=== PATIENT | female | born 1945 | race Caucasian/White ===

== ENCOUNTER 2017-08-11 08:16 | Outpatient (CLI) | payer MEDICARE, BC ==
[2017-08-11] MEDS ORDERED: Iopamidol 370 76% 100 ML VIAL ONE (09:45)
--- NOTE | 2017-08-11 09:49 | CT ---
CT HEAD WITH AND WITHOUT IV CONTRAST: Date: 08-11-17 History: Headache. Dizziness. Symptoms have been present for months. Comparison: 11-19-10 FINDINGS: There is no evidence of hemorrhage, acute infarction, mass effect or midline shift. Findings are unch anged when compared to the prior exam. After the administration of intravenous contrast, no abnormal areas of enhancement are appreciated. Ventricular system is normal in size, shape, and position. Visu alized paranasal sinuses and mastoid air cells are clear. Calvarial structures are intact. IMPRESSION: No acute intracranial abnormality is demonstrated. POS: [facility]
== END 2017-08-11 08:17 | disposition home or self-care (01) ==
LOC: CT 08:16
PROVIDERS: ATTEND Internal Medicine Cardiovascular Disease
DX: R51 Headache (principal)
CPT/HCPCS: 70470; 82565

== ENCOUNTER 2017-12-31 11:18 | Outpatient (CLI) | payer MEDICARE, BC | END 2017-12-31 11:19 | disposition home or self-care (01) | LOC: BICMAMMO 11:18 | PROVIDERS: ATTEND Obstetrics & Gynecology | DX: Z12.31 Encounter for screening mammogram for malignant neoplasm of breast (principal); Z80.3 Family history of malignant neoplasm of breast | CPT/HCPCS: 77063; 77067 ==

== ENCOUNTER 2018-04-16 07:58 | Day surgery (SDC) | payer MEDICARE, BC ==
[2018-04-08 11:25] VITALS: BMI 27.8
[2018-04-16] MEDS ORDERED: Fentanyl 100 MCG/2 ML VIAL ONE (11:20)
[2018-04-16] MEDS ORDERED: Lidocaine 1% (PF) 30 ML VIAL ONE (11:20)
[2018-04-16] MEDS ORDERED: Midazolam HCl 2 mg/2 ml Vial ONE (11:20)
[2018-04-16] MEDS ORDERED: Iopamidol 370 76% 100 ML VIAL ONE (13:47)
== END 2018-04-16 15:16 ==
LOC: CCL 07:58
PROVIDERS: ATTEND Internal Medicine Cardiovascular Disease
PROC: 4A023N7 Measurement of Cardiac Sampling and Pressure, Left Heart, Percutaneous Approach (ICD-10-PCS; principal; 2018-04-16)
PROC: B2111ZZ Fluoroscopy of Multiple Coronary Arteries using Low Osmolar Contrast (ICD-10-PCS; 2018-04-16)
DX: I25.10 Atherosclerotic heart disease of native coronary artery without angina pectoris (principal); E78.5 Hyperlipidemia, unspecified; E03.9 Hypothyroidism, unspecified; E78.00 Pure hypercholesterolemia, unspecified; K21.9 Gastro-esophageal reflux disease without esophagitis; I47.1 Supraventricular tachycardia; Z87.891 Personal history of nicotine dependence; Z79.899 Other long term (current) drug therapy; Z88.5 Allergy status to narcotic agent; Z88.8 Allergy status to other drugs, medicaments and biological substances
CPT/HCPCS: 93458; C1769; 99152; 99153; J1644; J2001; J2250; J3010

== ENCOUNTER 2018-06-23 07:28 | Outpatient (CLI) | payer MEDICARE, BC ==
--- NOTE | 2018-06-23 12:37 | RAD ---
CHEST TWO VIEWS: History: Dyspnea. Comparison: 04-17-16 FINDINGS: There is some calcified granuloma in the right lung base. Lungs are clear otherwise. No pneumothorax. No effusion. No acute osseous abnormality. Incomplete evaluation of ACDF hardware. IMPRESSION: No acute intrathoracic abnormality. POS: [facility]
== END 2018-06-23 07:29 | disposition home or self-care (01) ==
LOC: RAD 07:28
PROVIDERS: ATTEND Internal Medicine Critical Care Medicine
DX: R06.00 Dyspnea, unspecified (principal)
CPT/HCPCS: 71046

== ENCOUNTER 2019-01-13 08:33 | Outpatient (CLI) | payer MEDICARE, BC ==
--- NOTE | 2019-01-13 09:05 | MMO ---
Bilateral MAMMO Bilat Screen [facility]. CLINICAL HISTORY: Patient is 73 years old and is seen for screening. The patient has the following family history of breast cancer: maternal aunt and paternal aunt. The patient has no personal history of cancer. VIEWS: The views performed were: bilateral craniocaudal with tomosynthesis; bilateral mediolateral oblique with tomosynthesis; and bilateral exaggerated craniocaudal. FILMS COMPARED: The present examination has been compared to prior imaging studies performed at [facility] on 12/18/2014, 12/20/2015, 12/30/2016 and 12/31/2017. MAMMOGRAM FINDINGS: The breasts are heterogeneously dense, which could obscure a lesion on mammography. There are stable benign appearing calcifications seen in both breasts. There are no suspicious masses, suspicious calcifications, or new areas of architectural distortion. IMPRESSION: THERE IS NO MAMMOGRAPHIC EVIDENCE OF MALIGNANCY. A ROUTINE FOLLOW-UP MAMMOGRAM IN 1 YEAR IS RECOMMENDED. THE RESULTS OF THIS EXAM WERE SENT TO THE PATIENT. ACR BI-RADS Category 2 - Benign finding MAMMOGRAPHY NOTE: 1. A negative mammogram report should not delay a biopsy if a dominant of clinically suspicious mass is present. 2. Approximately 10% to 15% of breast cancers are not detected by mammography. 3. Adenosis and dense breasts may obscure an underlying neoplasm.
--- NOTE | 2019-01-13 09:23 | BD ---
DEXA BONE SCAN: HISTORY: Age-related osteoporosis DEXA Bone scan is performed using Hologic bone mineral density unit. FINDINGS: Lumbar Spine: BMD (g/cm2) L1 0.960 T-Score: -0.3 Z-Score: 1.8 L2 1.080 T-Score: 0.5 Z-Score: 2.8 L3 1.090 T-Score: 0.0 Z-Score: 2.5 L4 1.010 T-Score: -0.5 Z-Score: 2.1 L1-L4 1.030 T-Score: -0.1 Z-Score: 2.2 Left Hip: Femoral Neck: 0.630 T-Score: -2.0 Z-Score: 0.1 Total Femur: 0.830 T-Score: -0.9 Z-Score: 0.8 Findings compatible with osteopenia. The patient has a major osteoporotic fracture risk of 22% and hip fracture risk of 12%. IMPRESSION: Mild increased risk of osteoporotic fractures. Transcribed Date/Time: 01/13/2019 9:41 AM
== END 2019-01-13 08:34 | disposition home or self-care (01) ==
LOC: BICMAMMO 08:33
PROVIDERS: ATTEND Specialist
DX: Z12.31 Encounter for screening mammogram for malignant neoplasm of breast (principal); M81.0 Age-related osteoporosis without current pathological fracture; Z80.3 Family history of malignant neoplasm of breast
CPT/HCPCS: 77063; 77067; 77080

== ENCOUNTER 2019-01-25 09:54 | Outpatient (CLI) | payer MEDICARE, BC ==
--- NOTE | 2019-01-25 10:11 | RAD ---
XR Chest Pa Lat STANDARD HISTORY: Cough COMPARISON: 08/16/2018 study FINDINGS: Heart size within normal limits. There are atherosclerotic changes of the aorta. Mild chron ic lung changes are seen. There is evidence of old granulomatous disease. Postoperative changes of the cervical spine are present. IMPRESSION: No active intrathoracic disease. Stable chest.
== END 2019-01-25 09:55 | disposition home or self-care (01) ==
LOC: BICRAD 09:54
PROVIDERS: ATTEND Specialist
DX: R05 Cough (principal)
CPT/HCPCS: 71046

== ENCOUNTER 2019-03-03 09:29 | Outpatient (CLI) | payer MEDICARE, BC ==
--- NOTE | 2019-03-03 11:13 | RAD ---
RADIOGRAPH CHEST 1 VIEW RADIOGRAPH ABDOMEN 2 VIEWS: DATE: 03/03/19 HISTORY: 73-year-old female with right lower quadrant abdominal pain. Status post polypectomy. STAT telephone call, as requested, to Dr. Gina Cuba at time of dictation. FINDINGS: There are no air space densities or pulmonary edema. The lateral costophrenic angles are sharp. There is no cardiomegaly. There is no evidence of pneumothorax or pneumoperitoneum. There is no evidence of dilated small bowel loops, differential air/fluid levels, or organomegaly. Th ere are cholecystectomy clips in the right upper quadrant. IMPRESSION: 1. No acute cardiopulmonary findings. 2. No evidence of bowel obstruction. 3. No evidence of pneumoperitoneum. 4. Status post cholecystectomy. CODE CR. jn [] POS: [facility]
== END 2019-03-03 09:30 | disposition home or self-care (01) ==
LOC: BICRAD 09:29
PROVIDERS: ATTEND Family Medicine
DX: R10.31 Right lower quadrant pain (principal); Z90.49 Acquired absence of other specified parts of digestive tract
CPT/HCPCS: 74022

== ENCOUNTER 2019-06-16 20:58 | Observation (INO) | payer MEDICARE, BC ==
[2019-06-16 21:45] LABS: #Basophils 0.1 thou/uL (0.0-0.2); #Eosinphils 0.2 thou/uL (0.0-0.7); #Lymphocytes 2.7 thou/uL (1.20-3.40); #Monocytes 0.6 thou/uL (0.11-0.59); %Eosinophils 2.7 % (0.0-10.0); %Lymphocytes 35.6 % (21.0-51.0); %Monocytes 7.2 % (0.0-10.0); %Neutrophils 53.4 % (42.0-75.0); Hemoglobin 14.4 g/dL (12.0-16.0); Mean Corpuscular HGB CONC 33.6 g/dL (32.0-36.0); Mean Corpuscular Hemoglobin 29.8 pg (27.0-31.0); Mean Corpuscular Volume 88.8 fL (78.0-98.0); Mean Platelet Volume 8.3 fL (7.4-10.4); Platelet Count 219 thou/uL (130-400); RBC Distribution Width 11.2 % (11.5-14.5); Red Blood Cell (RBC) Count 4.81 mill/uL (4.20-5.40); White Blood Cell (WBC) Count 7.6 thou/uL (4.8-10.8)
[2019-06-16 22:12] LABS: ALT (SGPT) 16 U/L (8-55); AST (SGOT) 16 U/L (5-34); Albumin 4.4 g/dL (3.4-4.8); Alkaline Phosphatase 84 U/L (40-110); Anion Gap 12 mmol/L (10-20); BUN (Urea Nitrogen) 14 mg/dL (9.8-20.1); Bilirubin, Total 0.3 mg/dL (0.2-1.2); Calc. Creatinine Clearance 0 mL/min (70-130); Calcium 9.8 mg/dL (7.8-10.44); Carbon Dioxide 29 mmol/L (23-31); Chloride 105 mmol/L (98-107); Estimated GFR-MDRD 63; Globulin 2.9 g/dL (2.4-3.5); Glucose 104 mg/dL (83-110); Potassium 3.7 mmol/L (3.5-5.1); Protein, Total 7.3 g/dL (6.0-8.3); Sodium 142 mmol/L (136-145)
[2019-06-16] MEDS ORDERED: Nitroglycerin 2% Ointment 1 INCH/1 GM Packet ONE (22:22)
[2019-06-16] MEDS ORDERED: Aspirin Chewable 81 MG TAB ONE (22:22)
--- NOTE | 2019-06-16 22:35 | CT ---
CT head noncontrast HISTORY: Hypertension. Dizziness. COMPARISON: 11/19/2010. FINDINGS: There is no evidence of acute intracranial hemorrhage or infarct. The ventricles appear nor mal in size, shape and position. There is no mass effect or shift of midline structures. Visualized paranasal sinuses remain well-aerated. IMPRESSION: No acute intracranial abnormalities are demonstrated.
--- NOTE | 2019-06-16 23:43 | RAD ---
Chest one view HISTORY: Chest pain. COMPARISON: 03/03/2019. FINDINGS: Cardiac silhouette is magnified by projection. Pulmonary vasculature is unremarkable. Media stinum is midline with aortic calcification. Calcified granulomata are consistent with healed granulomatous disease. No lobar consolidation or evidence of pneumothorax. patient monitor leads over lie the chest. IMPRESSION: Atherosclerosis. No active cardiopulmonary abnormalities are otherwise demonstrated.
[2019-06-17] MEDS ORDERED: Mag-Al 1200 mg/1200 mg/30 ML UDCUP ONE (00:25)
[2019-06-17] MEDS ORDERED: Lidocaine Viscous Sol 2% 15 ml UD Cup ONE (00:25)
[2019-06-17 01:28] LABS: Troponin I Less than 0.010 ng/mL (< 0.028)
[2019-06-17] MEDS ORDERED: Acetaminophen 325 MG TAB PO PRN (01:40)
[2019-06-17] MEDS ORDERED: Ondansetron PF 4 MG/2 ML Vial IVP PRN (01:40)
[2019-06-17] MEDS ORDERED: HYDROcodone/Acetaminophen 5/325 mg Tablet PO PRN ×2 (01:40)
[2019-06-17] MEDS ORDERED: Ondansetron ODT 4 MG TAB SL PRN (01:40)
[2019-06-17] MEDS ORDERED: Nitroglycerin 0.4 MG TAB (25 Tab Bottle) SL PRN (01:41)
[2019-06-17 05:07] LABS: Troponin I Less than 0.010 ng/mL (< 0.028)
[2019-06-17 08:11] VITALS: TEMP 98.1
[2019-06-17] MEDS ORDERED: Zolpidem Tartrate 5 MG TAB PO PRN (08:54)
[2019-06-17] MEDS ORDERED: Pentazocine HCl/Naloxone HCl 50/0.5 MG TAB PO PRN (08:55)
[2019-06-17] MEDS ORDERED: Clopidogrel Bisulfate 75 MG TAB PO SCH (09:00)
[2019-06-17] MEDS ORDERED: Carvedilol 3.125 MG TAB PO SCH (09:00)
[2019-06-17] MEDS ORDERED: Amlodipine 10 MG TAB PO SCH (09:00)
[2019-06-17] MEDS ORDERED: VASCEPA 1 GM PO SCH (09:00)
--- NOTE | 2019-06-17 10:42 | HP ---
CHIEF COMPLAINT: Chest pain. HISTORY OF PRESENT ILLNESS: The patient is a 74-year-old female, who states that on the day of admission, she began to have severe headache. She also had chest pain substernally that went up into her neck. It was associated with some mild shortness of breath and nausea, but she did not actually vomit. She eventually came to the emergency room where her blood pressure systolically was elevated to 240. This was addressed quickly in the emergency room, but the headache maintained. The original lab work returned unremarkable. PAST MEDICAL HISTORY: Significant for intermittent headaches. She has had a prior history of chest pain, where Dr. Benavides did a catheterization and was found 40% blockage. She has history of dyslipidemia. She is a former tobacco smoker. Supraventricular ectopic beats, hypothyroidism, varicose veins. PAST SURGICAL HISTORY: Includes posterior colporrhaphy in 2008, hysterectomy, hemorrhoidectomy, cholecystectomy, left knee surgery, arthroscopic surgery, and venous surgery in March 2013. SOCIAL HISTORY: As mentioned, she is a previous smoker, but does not currently smoke. ALLERGIES: NUMEROUS AND INCLUDE DEMEROL, HYDROCODONE, LEVAQUIN, ASPIRIN, PENICILLIN, AND STATINS. REVIEW OF SYSTEMS: At the time is positive for headache, nausea, and dyspnea. Negative for 9 other system reviews. PHYSICAL EXAMINATION: At the time of admission: VITAL SIGNS: Blood pressure 146/75, pulse 68, respirations 18, temperature 98.6, O2 saturation 96%. GENERAL: This is a well-developed, well-nourished, female, alert, and cooperative. HEENT: Normocephalic, atraumatic. Pupils are equal, round, and reactive to light. Extraocular muscles are intact. Arcus senilis bilaterally. TMs, nares, and pharynx are clear. NECK: Supple. CHEST: Clear to auscultation. BREASTS: Deferred. HEART: Regular rate and rhythm without murmur. ABDOMEN: Soft, nontender without organomegaly. : Deferred. EXTREMITIES: Without clubbing, cyanosis, or edema. Normal range of motion noted. Symmetrical muscular tone development noted. SKIN: Without acute rashes or lesions. NEUROLOGIC: Cranial nerves are intact. Gait and cerebellar function are intact. Sensory exam is grossly intact. Mental status is nonfocal. LABORATORY DATA: Lab work on admission shows WBC 6.7, hemoglobin 14.4, hematocrit 42.8 with platelets at 219. Her sodium is 142, potassium 3.7, chloride 105, CO2 of 29, BUN 14, creatinine 0.8 with a GFR 63. Liver functions unremarkable. Troponin I is negative x3. Total cholesterol 262, HDL is 52, LDL is 176, and TSH is 0.33. Chest x-ray, unremarkable. CT of the head, unremarkable. ASSESSMENT: 1. Chest pain with multiple risk factors. 2. Headache. 3. Hypothyroidism-overmedicated. 4. Hyperlipidemia with intolerance to statins. PLAN: Plan will be stress test. Consult Dr. Benavides who has seen her in the past. Serially re-evaluate her. Job ID: [id number]
[2019-06-17 12:06] VITALS: BP 149/66
[2019-06-17] MEDS ORDERED: hydrALAZINE 25 MG TAB PO PRN (13:08)
--- NOTE | 2019-06-17 13:50 | CON ---
DATE OF CONSULTATION: 06/17/2019 REASON FOR CONSULTATION: Chest pain and hypertension. HISTORY OF PRESENT ILLNESS: Ms. Rizo is a pleasant 74-year-old white female, who comes to the hospital for having a severe headache and generalized malaise. She was at home. She started having a severe headache and chest tightness. She measured her blood pressure, it was 240/110. She decided to come to the ER for this, where her blood pressure was brought down appropriately and her pain and headaches resolved. She has a history of mild coronary artery disease. She had a heart catheterization in April of last year, where she had just minimal stenosis. She has a history of familial hyperlipidemia. More than likely, she has failed statins in the past and we have attempted to get her on Praluent or Repatha and her insurance company has denied this request. Currently, she feels much better. She denies any more chest pain, tightness, or pressure. No more shortness of breath. No more headaches. PAST MEDICAL HISTORY: 1. Mild coronary artery disease. 2. History of headaches. 3. Hyperlipidemia. 4. Former tobacco user. 5. PACs. 6. Hypothyroidism. 7. Varicose veins. PAST SURGICAL HISTORY: 1. Posterior colporrhaphy in 2008. 2. Hysterectomy. 3. Hemorrhoidectomy. 4. Cholecystectomy. 5. Left knee surgery. 6. Arthroscopic venous surgery. SOCIAL HISTORY: Former smoker. No alcohol or drugs. OUTPATIENT MEDICATIONS: 1. Ambien 5 mg at bedtime. 2. Synthroid 112 mcg a day. 3. Lansoprazole 15 mg a day. 4. Acetaminophen 650 mg p.r.n. 5. She was on Zetia, but it gave her side effects as well. She had leg pains. ALLERGIES: 1. DEMEROL. 2. HYDROCODONE. 3. LEVAQUIN. 4. ASPIRIN. 5. PENICILLIN. 6. STATIN DRUGS. REVIEW OF SYSTEMS: A 12-point review of systems was done and was found to be negative unless stated in history of present illness. PHYSICAL EXAMINATION: VITAL SIGNS: Temperature 98.1, pulse 66, respiratory rate 20, saturating 96% on room air, blood pressure 149/66. GENERAL: Awake, alert, oriented x3. No distress. HEENT: Normocephalic, atraumatic. NECK: Supple. LUNGS: Clear. CARDIOVASCULAR: S1 and S2. No S3 or S4. No murmurs or rubs. ABDOMEN: Soft. Positive bowel sounds. EXTREMITIES: No edema. SKIN: Warm and dry. LABORATORY DATA: Laboratory work was reviewed. Troponin is negative x3. Triglycerides of 170, total cholesterol 262, LDL of 176, HDL of 52, TSH was low at 0.3. The rest of the metabolic profile was unremarkable. CBC was unremarkable. EKG was reviewed. No acute ischemic changes. Chest x-ray and brain CT were reviewed. ASSESSMENT AND PLAN: 1. Hypertensive urgency. Most likely her symptoms are related to extremely elevated high blood pressure. This has been better controlled and her symptoms are resolved. I would agree with continued blood pressure control. I would put her on 5 mg of amlodipine as she has had blood pressure medications in the past and she dropped precipitously and did not like the way she felt and ended up stopping all these medications. I will provide prescription for 5 mg of amlodipine for her to take daily. She will keep a log of her blood pressure measurements in morning and afternoons, and she has already a scheduled appointment with me in 2 to 3 weeks, which she will keep and bring a log. I will also provide a prescription for hydralazine 25 mg as needed for systolic blood pressure above 180. 2. Mild coronary artery disease. Unlikely this is an acute coronary syndrome, given unremarkable echo and completely undetectable troponins. 3. From the cardiac perspective, may discharge home at any point. We will follow up with me in the office as scheduled in 2 to 3 weeks. Thank you for letting me to participate in the care of your patient. We will sign off. Job ID: [id number]
[2019-06-18] MEDS ORDERED: Levothyroxine Sodium 112 MCG TAB PO SCH (06:00)
[2019-06-18] MEDS ORDERED: Amlodipine 5 MG TAB PO SCH (09:00)
== END 2019-06-17 14:49 | disposition home or self-care (01) ==
LOC: ERS 20:58 → 2SW 06-17 01:35
PROVIDERS: ADMIT Specialist; ATTEND Specialist
DX: R07.2 Precordial pain (principal); I16.0 Hypertensive urgency; I10 Essential (primary) hypertension; E03.9 Hypothyroidism, unspecified; E78.5 Hyperlipidemia, unspecified; I25.10 Atherosclerotic heart disease of native coronary artery without angina pectoris; Z79.899 Other long term (current) drug therapy; Z87.891 Personal history of nicotine dependence; Z88.0 Allergy status to penicillin; Z88.1 Allergy status to other antibiotic agents; Z88.5 Allergy status to narcotic agent; Z88.8 Allergy status to other drugs, medicaments and biological substances
CPT/HCPCS: 70450; 71045; 80053; 80061; 84443; 84484 ×3; 85025; 93005; 96360; 96361; 99285; G0378 ×2; 36415

== ENCOUNTER 2019-06-28 13:53 | Outpatient (CLI) | payer MEDICARE, BC ==
[~2019-06-28 13:53] MED LIST: Iopamidol-370 76% 500 ML 1 ML ONE
--- NOTE | 2019-06-28 14:50 | CT ---
CT OF THE CHEST WITH IV CONTRAST INDICATION: 74-year-old female with chest pain and elevated blood pressure COMPARISON: None FINDINGS: CHEST: Lungs: There is a 4 mm pulmonary nodule in the right upper lobe. There is a calcified granuloma in th e right lower lobe. No confluent airspace opacity is evident. No suspicious pulmonary nodules identified. Pleural space: No effusion. Mediastinum: There are calcified lymph nodes within the right hilar region. There are coronary artery and thoracic aortic calcifications. Upper abdomen:The gallbladder surgically absent. Adrenal glands are normal appearing. Visualized panc reas, liver and spleen appear within normal limits. Osseous structures: No acute osseous abnormality. No destructive osteolytic or osteoblastic lesion i s identified. There is scattered degenerative and osteoarthritic changes. There is diffuse osteopenia. Soft tissues:Normal. IMPRESSION: 1. No acute abnormality.
== END 2019-06-28 13:54 | disposition home or self-care (01) ==
LOC: BICCT 13:53
PROVIDERS: ATTEND Internal Medicine Cardiovascular Disease
DX: R07.9 Chest pain, unspecified (principal)
CPT/HCPCS: 71260; Q9967

== ENCOUNTER 2020-02-07 09:24 | Outpatient (CLI) | payer MEDICARE, BC ==
--- NOTE | 2020-02-07 10:14 | MMO ---
Bilateral MAMMO Bilat Screen [facility]. CLINICAL HISTORY: Patient is 74 years old and is seen for screening. The patient has the following family history of breast cancer: maternal aunt and paternal aunt. The patient has no personal history of cancer. VIEWS: The views performed were: bilateral craniocaudal with tomosynthesis and bilateral mediolateral oblique with tomosynthesis. FILMS COMPARED: The present examination has been compared to prior imaging studies performed at [facility] on 12/20/2015, 12/30/2016, 12/31/2017 and 01/13/2019. This study has been interpreted with the assistance of computer-aided detection. MAMMOGRAM FINDINGS: The breasts are heterogeneously dense, which could obscure a lesion on mammography. There are stable benign appearing calcifications seen in both breasts. There are no suspicious masses, suspicious calcifications, or new areas of architectural distortion. IMPRESSION: THERE IS NO MAMMOGRAPHIC EVIDENCE OF MALIGNANCY. A ROUTINE FOLLOW-UP MAMMOGRAM IN 1 YEAR IS RECOMMENDED. THE RESULTS OF THIS EXAM WERE SENT TO THE PATIENT. ACR BI-RADS Category 2 - Benign finding MAMMOGRAPHY NOTE: 1. A negative mammogram report should not delay a biopsy if a dominant of clinically suspicious mass is present. 2. Approximately 10% to 15% of breast cancers are not detected by mammography. 3. Adenosis and dense breasts may obscure an underlying neoplasm. Reported by: DANDRE DUTTON MD Electonically Signed: [id number]
== END 2020-02-07 09:25 | disposition home or self-care (01) ==
LOC: BICMAMMO 09:24
PROVIDERS: ATTEND Specialist
DX: Z12.31 Encounter for screening mammogram for malignant neoplasm of breast (principal); Z80.3 Family history of malignant neoplasm of breast
CPT/HCPCS: 77063; 77067

== ENCOUNTER 2020-02-13 12:38 | Outpatient (CLI) | payer MEDICARE, BC, OTHER ==
[2020-02-14 14:03] LABS: SARS-CoV-2 MS2 Positive; SARS-CoV-2 N Gene Negative; SARS-CoV-2 S Gene Negative; SARS-CoV-2 orf1ab Negative
== END 2020-02-13 12:39 | disposition home or self-care (01) ==
LOC: LABSCS 12:38
PROVIDERS: ATTEND Internal Medicine Gastroenterology
DX: Z01.812 Encounter for preprocedural laboratory examination (principal); Z11.59 Encounter for screening for other viral diseases; D12.6 Benign neoplasm of colon, unspecified; K21.9 Gastro-esophageal reflux disease without esophagitis; R13.10 Dysphagia, unspecified; R63.4 Abnormal weight loss
CPT/HCPCS: 87635; U0003

== ENCOUNTER → 2020-02-17 | Day surgery (SDC) | payer MEDICARE, BC | LOC: ENDO/OP 07:22 | PROVIDERS: ATTEND Internal Medicine Gastroenterology | DX: K21.9 Gastro-esophageal reflux disease without esophagitis (principal); R13.10 Dysphagia, unspecified; Z88.0 Allergy status to penicillin; Z88.1 Allergy status to other antibiotic agents; Z88.5 Allergy status to narcotic agent; Z88.6 Allergy status to analgesic agent | CPT/HCPCS: 91010 ==

== ENCOUNTER 2020-02-21 09:57 | Outpatient (CLI) | payer MEDICARE, BC ==
--- NOTE | 2020-02-21 11:45 | BD ---
BONE DENSITOMETRY: INDICATION: Postmenopausal screening. FINDINGS: Lumbar Spine: BMD (g/cm2) L1 0.961 T-Score: -0.3 L2 1.134 T-Score: 1.0 L3 1.100 T-Score: 0.1 L4 0.982 T-Score: -0.7 L1-L4 1.044 T-Score: 0.0 Total lumbar density 01/13/2019: 1.033. Femoral Neck: 0.631 T-Score: -2.0 Total Femur: 0.810 T-Score: -1.1 Total femur density 01/13/2019: 0.828. Impression: 1. Bone mineral density of the lumbar spine within normal range. 2. Bone mineral density of the femoral neck indicates osteopenia. TEN-YEAR FRACTURE RISK: Major osteoporotic fracture: 24%. Hip fracture: 14%. POS: [facility]
== END 2020-02-21 09:58 | disposition home or self-care (01) ==
LOC: BICMAMMO 09:57
PROVIDERS: ATTEND Specialist
DX: Z13.820 Encounter for screening for osteoporosis (principal); M85.859 Other specified disorders of bone density and structure, unspecified thigh
CPT/HCPCS: 77080

== ENCOUNTER 2020-07-09 09:34 | Outpatient (CLI) | payer MEDICARE, BC ==
--- NOTE | 2020-07-09 10:11 | CT ---
CT OF THE THORAX WITHOUT IV CONTRAST INDICATION: Follow-up pulmonary nodule. COMPARISON: Prior CT thorax dated June 28, 2019 FINDINGS: LUNGS: 4 mm pulmonary nodule within the right upper lobe, adjacent to the right minor fissure is stab le. Calcified granuloma the right lower lobe is similar. No new suspicious pulmonary nodules identified. There is a 4 mm subpleural pulmonary nodule within the superior segment of the right lowe r lobe on image 55 of series 3, stable to the prior exam for Pleural spaces: Clear Lymph nodes: No pathologically enlarged lymph nodes. Heart and great vessels: There are coronary artery and thoracic aortic calcifications. Upper abdomen: The gallbladder surgically absent. Adrenal glands are normal appearing. Osseous structures: There is scattered degenerative and osteoarthritic change present. No acute fract ure or subluxation demonstrated. There is diffuse osteopenia. IMPRESSION: 1. Small 4 mm pulmonary nodules within the right upper lobe and right lower lobe are stable. 2. Findings of prior granulomatous disease.
== END 2020-07-09 09:35 | disposition home or self-care (01) ==
LOC: BICCT 09:34
PROVIDERS: ATTEND Internal Medicine Critical Care Medicine
DX: R91.8 Other nonspecific abnormal finding of lung field (principal)
CPT/HCPCS: 71250

== ENCOUNTER 2020-09-29 14:36 | Inpatient (IN) | payer MEDICARE, BC ==
[2020-09-29] MEDS ORDERED: Fentanyl 100 MCG/2 ML VIAL ONE ×3 (14:50→15:58)
[2020-09-29] MEDS ORDERED: Ondansetron PF 4 MG/2 ML Vial ONE ×2 (14:50→18:21)
--- NOTE | 2020-09-29 15:56 | RAD ---
EXAM: XR Shoulder Rt 3 View STANDARD PROVIDED CLINICAL HISTORY: Pain FINDINGS: There is no evidence for fracture or other acute osseous abnormality. Alignment appears anatomic. Glenna nt spaces appear preserved. IMPRESSION: No evidence for an acute osseous abnormality. If there is persistent clinical concern, conservative m anagement and follow-up imaging advised.
--- NOTE | 2020-09-29 15:56 | RAD ---
EXAM: XR Elbow Lt 2 View PROVIDED CLINICAL HISTORY: Pain status post injury COMPARISON: None FINDINGS: There is posterior dislocation of the left elbow. There is a fracture fragment overlying the medial a spect of the radial neck on both projections presumably reflecting ulnar fracture. IMPRESSION: Left elbow dislocation with associated fracture.
--- NOTE | 2020-09-29 15:57 | RAD ---
EXAM: XR Wrist 3 Lt View STANDARD PROVIDED CLINICAL HISTORY: Pain FINDINGS: There is no evidence for fracture or other acute osseous abnormality. Alignment appears anatomic. Glenna nt spaces appear preserved. IMPRESSION: No evidence for an acute osseous abnormality. If there is persistent clinical concern, conservative m anagement and follow-up imaging advised.
--- NOTE | 2020-09-29 16:00 | RAD ---
EXAM: XR Wrist 3 Rt View STANDARD PROVIDED CLINICAL HISTORY: Pain status post injury COMPARISON: None FINDINGS: There is a nondisplaced ulnar styloid fracture suspected. The lateral view is suboptimally positioned , with evidence for fracture involving the dorsal/ulnar aspects of the distal radius. IMPRESSION: Distal radial and ulnar styloid fractures.
--- NOTE | 2020-09-29 16:01 | RAD ---
EXAM: XR Knee Lt 4 View STANDARD PROVIDED CLINICAL HISTORY: Pain FINDINGS: Nondisplaced fracture is demonstrated involving the midportion of the patella. No additional fracture is evident. Alignment appears anatomic. Mild medial femorotibial joint space narrowing. IMPRESSION: Nondisplaced patellar fracture.
--- NOTE | 2020-09-29 16:36 | CT ---
EXAM: CT cervical spine PROVIDED CLINICAL HISTORY: Fall with head injury wrist injury, pain COMPARISON: None FINDINGS: No evidence for fracture or traumatic subluxation. No prevertebral soft tissue swelling apparent. Vi sualized lung apices appear clear. Postoperative changes of ACDF are noted from C4 through C6, without evidence for hardware loosening or migration. IMPRESSION: No evidence for fracture or traumatic subluxation.
--- NOTE | 2020-09-29 16:38 | CT ---
Exam: CT brain PROVIDED CLINICAL HISTORY: Fall, wrist injury, left knee pain COMPARISON: 06/16/2019 FINDINGS: The ventricular system is normal in size and morphology. No evidence for intracranial hemorrhage or mass effect. The extracranial soft tissues and osseous structures demonstrate no evidence for an acute abnormality. IMPRESSION: No evidence for intracranial hemorrhage or mass effect.
[2020-09-29] MEDS ORDERED: Lorazepam 2 MG/ML VIAL ONE (17:00)
[2020-09-29] MEDS ORDERED: Ketamine 50 MG/ML (10ML VIAL) ONE (17:00)
[2020-09-29 17:10] LABS: #Lymphocytes 1.5 thou/uL (1.20-3.40); #Monocytes 0.6 thou/uL (0.11-0.59); %Basophils 0.2 % (0.0-1.0); %Eosinophils 0.3 % (0.0-10.0); %Lymphocytes 10.4 % (21.0-51.0); %Monocytes 4.1 % (0.0-10.0); Mean Corpuscular HGB CONC 34.8 g/dL (32.0-36.0); Mean Corpuscular Hemoglobin 30.9 pg (27.0-31.0); Mean Corpuscular Volume 88.8 fL (78.0-98.0); Mean Platelet Volume 8.6 fL (7.4-10.4); Platelet Count 207 thou/uL (130-400); RBC Distribution Width 11.4 % (11.5-14.5); Red Blood Cell (RBC) Count 4.19 mill/uL (4.20-5.40); White Blood Cell (WBC) Count 14.1 thou/uL (4.8-10.8)
[2020-09-29 17:16] LABS: INR-International Normal Ratio 0.9; PTT 23.5 sec (22.9-36.1); Prothrombin Time 12.1 sec (12.0-14.7)
[2020-09-29 17:32] LABS: ALT (SGPT) 18 U/L (8-55); AST (SGOT) 22 U/L (5-34); Albumin 3.8 g/dL (3.4-4.8); Alkaline Phosphatase 68 U/L (40-110); Anion Gap 17 mmol/L (10-20); BUN (Urea Nitrogen) 17 mg/dL (9.8-20.1); Bilirubin, Total 0.4 mg/dL (0.2-1.2); Calc. Creatinine Clearance 0 mL/min (70-130); Calcium 9.2 mg/dL (7.8-10.44); Carbon Dioxide 21 mmol/L (23-31); Chloride 105 mmol/L (98-107); Glucose 96 mg/dL (83-110); Potassium 3.9 mmol/L (3.5-5.1); Protein, Total 6.8 g/dL (5.8-8.1); Sodium 139 mmol/L (136-145)
--- NOTE | 2020-09-29 18:10 | RAD ---
TWO VIEWS OF THE LEFT ELBOW: 09/29/20 PROVIDED CLINICAL HISTORY: Post reduction. FINDINGS: Comparison is made with the examination earlier same date. Interval reduction of left elbow dislocati on. Multiple fracture fragments are noted at the volar aspect of the elbow joint, presumably related to fracture of the coronoid process. IMPRESSION: As above. POS: [facility]
[2020-09-29] MEDS ORDERED: Promethazine HCl 25 MG/ML VIAL ONE (19:16)
[2020-09-29] MEDS ORDERED: traMADol HCl 50 MG TAB PO PRN (23:04)
[2020-09-29] MEDS ORDERED: Dextrose 5% in Water 1,000 ML IV PRN (23:04)
[2020-09-29] MEDS ORDERED: Ondansetron ODT 4 MG TAB PO PRN (23:04)
[2020-09-29] MEDS ORDERED: Dextrose 50% Abboject 50 ML SYRINGE SLOW IVP PRN (23:04)
[2020-09-29] MEDS ORDERED: Ondansetron PF 4 MG/2 ML Vial IVP PRN (23:04)
[2020-09-29] MEDS ORDERED: Morphine 2 MG/ML VIAL SLOW IVP PRN (23:04)
[2020-09-29 23:09] VITALS: BMI 27.1
[2020-09-29] MEDS ORDERED: Gabapentin 300 MG CAP PO SCH (23:15)
[2020-09-29] MEDS ORDERED: Famotidine 20 MG TAB PO SCH (23:15)
[2020-09-29] MEDS: Cyclobenzaprine 10 MG TAB PO PRN (23:52)
[2020-09-29] MEDS: Acetaminophen 325 MG TAB PO SCH (23:53)
[2020-09-29] MEDS: traMADol HCl 50 MG TAB PO PRN (23:55)
[2020-09-29] MEDS: Sodium Chloride 0.9% 1,000 ML IV SCH (23:58)
[2020-09-30 04:28] LABS: SARS-CoV-2 PCR by NAA Not Detected (NotDetected)
[2020-09-30] MEDS: Acetaminophen 325 MG TAB PO SCH ×4 (05:52→23:33)
[2020-09-30] MEDS: traMADol HCl 50 MG TAB PO PRN ×4 (05:53→23:32)
[2020-09-30 06:56] LABS: #Lymphocytes 2.1 thou/uL (1.20-3.40); #Monocytes 0.9 thou/uL (0.11-0.59); %Basophils 0.5 % (0.0-1.0); %Eosinophils 0.3 % (0.0-10.0); %Lymphocytes 23.1 % (21.0-51.0); %Monocytes 10.2 % (0.0-10.0); %Neutrophils 65.9 % (42.0-75.0); Hemoglobin 11.5 g/dL (12.0-16.0); Mean Corpuscular HGB CONC 33.4 g/dL (32.0-36.0); Mean Corpuscular Hemoglobin 30.2 pg (27.0-31.0); Mean Corpuscular Volume 90.4 fL (78.0-98.0); Mean Platelet Volume 9.9 fL (7.4-10.4); Platelet Count 179 thou/uL (130-400); RBC Distribution Width 11.7 % (11.5-14.5); White Blood Cell (WBC) Count 9.1 thou/uL (4.8-10.8)
--- NOTE | 2020-09-30 06:58 | HP ---
CHIEF COMPLAINT: Left elbow pain, right forearm pain, right knee pain. HISTORY OF PRESENT ILLNESS: A 75-year-old female, Ms. Rizo, with a past medical history of hypertension, hypothyroidism, hyperlipidemia, presented to the ED by EMS after falling in her house onto her tile floor after getting caught in plastic wrap that was on the ground. The patient has left upper arm deformity. The patient is complaining that she hit her head while she fell to the ground. Reports right forearm pain and left knee pain. The patient was brought by EMS to the hospital. EMS gave the patient fentanyl in the ambulance. The patient was seen at bedside after reduction of left elbow. The patient was complaining of sweating following to receiving ketamine Left knee x-ray shows nondisplaced patella fracture, left elbow dislocation with associated fracture on x-ray. The patient also on x-ray shows distal radial and ulnar styloid fracture, right wrist. The patient is in a right short-arm splint with long-arm left splint in place. The patient is actively moving her fingers. Sensation intact bilaterally. CT brain, no evidence of hemorrhage or mass effect. CT cervical spine, no evidence of fracture or traumatic subluxation. The patient denies loss of consciousness, vomiting, chest pain and shortness of breath. PAST MEDICAL HISTORY: Hypertension, hyperlipidemia, hypothyroidism. Medication lisinopril, Synthroid.ambien, vitamin E,C,D SOCIAL HISTORY: The patient lives at home alone. A brother lives next door. Daughter lives nearby . The patient is a former smoker, used tobacco and cigarettes, however, quit smoking 10 years ago. Patient drinks socially once a month. ALLERGIES: AZITHROMYCIN, CODEINE, DOXYCYCLINE, MEROPENEM, NSAIDS, PENICILLIN, ASPIRIN AND VALDECOXIB. PHYSICAL EXAMINATION: VITAL SIGNS: Blood pressure 140/75, pulse 106, respiratory rate 14, temp 98, O2 saturation 100% on room air. GENERAL: The patient is an obese female, sitting upright in bed, complaining of sweats with towel on her face. HEENT: Head normocephalic, atraumatic. Eyes equal, round, and reactive to light. Extraocular movement intact. NECK: No cervical tenderness or step-off deformity noted. Trachea midline. CARDIAC: Regular rate and rhythm. RESPIRATORY: Equal breath sounds bilaterally. ABDOMEN: Soft, nontender, and protuberant. No peritonitis. EXTREMITIES: Upper extremity, right arm, patient has sensation intact in distal fingers. Unable to assess radial pulse. Left arm, sensation intact in all fingers. Right lower extremity compartments are soft. Palpable DP, PT bilaterally. Right patellar defect/deformity. Left leg, full range of motion. NEUROLOGIC: GCS 14, -1 for confusion. Patient is currently sedated with ketamine and fentanyl during exam. ASSESSMENT: 1. Slip and fall. 2. Left nondisplaced patellar fracture. 3. Left elbow dislocation associated with fracture. 4. Distal radial and ulnar styloid fracture, right wrist. 5. Acute pain secondary to injury. 6. Past medical history of hypertension, hypothyroidism, hyperlipidemia. PLAN: Ms. Rizo is a 75-year-old female patient with left reduction of elbow splint in place. The patient's right wrist fracture, nonoperative at this hospital visit.Follow up with Orthopedic outpatient for surgery down the line. Left patellar fracture, nonoperative, knee immobilizer in place. Mechanical DVT prophylaxis, SCDs, pulmonary toilet, and GI prophylaxis. We will resume home medications for blood pressure control and hypothyroidism. Case was discussed with Dr. Conley, and after dictation will discuss with Dr. Mcpherson. We will obtain a complete history in the morning after patient is not under the influence of ketmine. Dispo Acute rehab pending PT evaluation Job ID: [id number] [facility]
[2020-09-30 07:20] LABS: Anion Gap 12 mmol/L (10-20); BUN (Urea Nitrogen) 16 mg/dL (9.8-20.1); Calc. Creatinine Clearance 94 mL/min (70-130); Calcium 8.3 mg/dL (7.8-10.44); Carbon Dioxide 22 mmol/L (23-31); Chloride 106 mmol/L (98-107); Glucose 98 mg/dL (83-110); Phosphorus 3.7 mg/dL (2.3-4.7); Sodium 136 mmol/L (136-145)
[2020-09-30] MEDS: Famotidine 20 MG TAB PO SCH ×2 (08:24→21:21)
[2020-09-30] MEDS: Sodium Chloride 0.9% 1,000 ML IV SCH (08:24)
[2020-09-30] MEDS: Gabapentin 300 MG CAP PO SCH ×2 (08:24→21:21)
--- NOTE | 2020-09-30 11:27 | CON ---
DATE OF CONSULTATION: 09/29/2020 REQUESTING PHYSICIAN: Dr. Juan Carlos Mcpherson. BRIEF HISTORY OF PRESENT ILLNESS: The patient is a 75-year-old female, who presents to the emergency department following a ground level fall at her home, landing on a tile floor with both outstretched arms as well as landing on her knees. Upon arrival at [facility], she was found to have gross deformity of the left elbow, a splint applied to the right wrist, as well as pain, swelling, and some early ecchymoses involving the left anterior knee. Following x-rays as well as a CT scan of the head due to the fact that she did have evidence of her striking her head in the course of this fall, she was found to have a significant dislocation of the left elbow with some fracture fragments felt to be from the coronoid process. She was also found to have an intra-articular distal radius fracture, but with minimal displacement as well as a nondisplaced transverse fracture at the lower 3rd of the patella on the left side. With this significant elbow dislocation, orthopedic consultation was requested in the emergency room for assistance as well as orthopedic consultation for her other orthopedic injuries. This orthopedic H and P is now dictated following the assistance of reduction of the elbow, which is dictated on the emergency room physician's note. There was no loss of consciousness. PAST MEDICAL HISTORY: Remarkable for hypertension, hyperlipidemia, hypothyroidism. PAST SURGICAL HISTORY: Includes cervical fusion, cataract surgery, cholecystectomy, hysterectomy, as well as a heart catheterization procedure in 2019. MEDICATIONS: Per her medication reconciliation form include: 1. Acetaminophen on a p.r.n. basis. 2. Prevacid. 3. Levothyroxine. 4. Lisinopril. 5. Multivitamins. ALLERGIES: TO AZITHROMYCIN, CODEINE, DOXYCYCLINE, MEROPENEM, PENICILLIN, AND SENSITIVITY TO NONSTEROIDAL ANTI-INFLAMMATORIES. FAMILY HISTORY: Noncontributory for this injury. SOCIAL HISTORY: The patient has a past history of tobacco use. She reports that she quit 10 years ago. She drinks alcohol socially, perhaps once a month. Denies drug use. REVIEW OF SYSTEMS: She denies any recent fevers, chills, or sweats. Denies chest pain, cough, or shortness of breath. Denies numbness, tingling, or weakness in her extremities. PHYSICAL EXAMINATION: VITAL SIGNS: Remarkable for temperature of 98, heart rate of 106, respiratory rate of 18, and blood pressure 140/75. GENERAL: The patient is found to be sitting upright in bed, is awake and alert. HEENT: Atraumatic, normocephalic. NECK: Nontender. HEART: Shows a regular rate and rhythm without murmur. LUNGS: Clear to auscultation bilaterally with good breath sounds. Chest wall is nontender. ABDOMEN: Round, soft with normal bowel sounds. EXTREMITIES: Remarkable for a left upper extremity that has intact sensation in the radial, median, and ulnar distributions. She has a 2+ radial pulse. This arm is now immobilized in a long-arm posterior fiberglass splint. The patient was found to have a complex dislocation of the elbow when she arrived. This was reduced by myself as well as the emergency room physician's staff using a combination of traction as well as rotation. The forearm was essentially rotated 90 degrees as well as fully dislocated with respect to the distal humerus. Upon reduction, she was found to have a stable arc of motion from 20 degrees to 110 degrees with no significant crepitation. I was also able to bring her through supination and pronation with no significant crepitation. The right upper extremity remarkable for some swelling and mild pain to palpation at the distal radius. This is most noticeable dorsally. There is no gross deformity or dinner fork deformity. She has intact sensation in the radial, median, and ulnar distributions. The elbow and shoulder appear atraumatic. The left lower extremity remarkable for an atraumatic hip, knee, ankle, and foot. She is wiggling her toes and has intact subjective sensation. The right lower extremity remarkable for an atraumatic hip, ankle, and foot. The knee is remarkable for tenderness to palpation anteriorly over the patella, although no obvious fracture diastasis is noted to palpation at this time. The EMS report was that on initial evaluation when the knee was flexed, there was a gap anteriorly. She is found to have an effusion within this knee. Range of motion was not tested due to the acute nature of this fracture. LABORATORY DATA: The patient is found to have a white count of 14.1, hematocrit of 37.2, and 207,000 platelets. Her INR is 0.9. X-rays 2 views of the left elbow initially show gross dislocation of the elbow with fracture fragment that appears to have come from the coronoid process. Two-view x-ray of the elbow following the closed reduction under ketamine sedation in the emergency room shows a concentric reduction of the elbow with bony fragment surrounding the area of the radial neck that I believe did come from the coronoid process. Three-view x-ray of the right wrist remarkable for a distal radius fracture with a dorsal ulnar fragment that is mildly displaced, but there is still maintenance of radial length, radial inclination, and there is essentially neutral to slight volar tilt. There is also a nondisplaced fracture through the ulnar styloid. Four-view x-ray of the left knee remarkable for a patellar fracture that is transverse in orientation at the distal 3rd of the patella with no significant fracture gap. Certainly, no gap greater than 2 mm on these films. Unable to appreciate any cortical step-off at the articular surface at the subchondral bone. Two-view x-ray of the left shoulder also obtained that shows normal anatomy. ASSESSMENT: A 75-year-old lady status post ground level fall landing on outstretched upper extremities as well as bilateral knees, now with a left elbow dislocation with coronoid process fracture, which has been successfully reduced in the emergency room and splinted. A minimally displaced right distal radius fracture, which has also now been splinted in the emergency room as well as a left transverse patellar fracture with no significant displacement. PLAN: At this time, the patient will be treated nonsurgically for these injuries. I will consult our elbow specialist regarding any further treatment required for the elbow; however, at this time, she does appear to have a stable reduction with an intact neurovascular status and I believe that further elbow work can be done as an elective-type procedure. With respect to the wrist, we will continue with splint to keep a close eye on this for any drift. If any drift is encountered, we may need to proceed with a surgical stabilization. The same goes for the left patella. At this time, it is completely nondisplaced. We will place her in a knee immobilizer, allow her to partially weightbear on this in full extension and minimize any quadriceps contraction. The patient will be admitted to the Trauma Service at this time. We will see the patient while she is here in the hospital as well as on the outpatient basis once discharged. Job ID: [id number]
[2020-09-30 14:31] LABS: Bacteria/HPF None Seen HPF (None Seen); Bilirubin Negative (Negative); Blood, Urine Negative (Negative); Clarity Clear (Clear); Glucose, Urine (Dipstick) Normal (Negative); Ketone, Urine Negative (Negative); Leukocyte Negative Leu/uL (Negative); Nitrite Negative (Negative); Protein, Urine (Dipstick) Negative (Neg-Trace); RBC/HPF 0-3 HPF (0-3); Specific Gravity, Urine 1.013 (1.002-1.036); Squamous Epithelial None Seen HPF (0-3); Urobilinogen Normal mg/dL (Less than 2); WBC/HPF 0-3 HPF (0-3); pH, Urine 5.5 (5.0-9.0)
[2020-09-30 14:34] LABS: Urine Culture Reflex No No
[2020-09-30] MEDS ORDERED: Zolpidem Tartrate 5 MG TAB PO PRN (17:40)
[2020-09-30] MEDS: Lisinopril 10 MG TAB PO SCH (21:21)
[2020-09-30] MEDS: Cyclobenzaprine 10 MG TAB PO PRN (23:38)
[2020-10-01] MEDS: Acetaminophen 325 MG TAB PO SCH ×4 (04:58→23:22)
[2020-10-01] MEDS: Levothyroxine Sodium 100 MCG TAB PO SCH (04:59)
[2020-10-01] MEDS: Cyclobenzaprine 10 MG TAB PO PRN (04:59)
[2020-10-01] MEDS: traMADol HCl 50 MG TAB PO PRN ×3 (04:59→20:46)
--- NOTE | 2020-10-01 06:54 | PRG ---
DATE OF SERVICE: 09/30/2020 SUBJECTIVE: A 75-year-old female patient, status post left elbow dislocation. The patient tolerated relocation of left elbow in the ED 09/29. The patient is in bed, sitting upright, talkative.The patient is tolerating regular diet and on IV fluids. OBJECTIVE: VITAL SIGNS: Temperature 98.2, pulse 85, respiratory rate 14, O2 saturation 90, blood pressure 118/72. GENERAL: Resting comfortably in bed. No acute distress. Speaking full sentences. CARDIAC: Regular rate and rhythm. LUNGS: Equal breath sounds bilaterally. ABDOMEN: Soft, nontender to palpation. MUSCULOSKELETAL: The patient is moving all extremities. Sensation is intact in upper and lower extremities. Left straight leg splint in place. Left arm, left sling, and short arm splint to the right arm. IMAGING DATA: -X-ray, two views, left elbow, initially shows gross deformity of the elbow, fracture fragment coronoid process. -Three-view x-ray of the right wrist remarkable for distal radius fracture with dorsal ulnar fracture that is mildly displaced. Nondisplaced fracture through the ulnar styloid process. -Four-view x-ray left knee is remarkable for patella fracture, transverse in orientation at the distal 3rd of the patella with 2mmfracture gap. -Left shoulder x-ray, no abnormal anatomy. ASSESSMENT: 1. Status post slip and fall. 2. Left nondisplaced patella fracture. 3. Left elbow dislocation associated with coronoid fracture, status post relocation. 4. Distal radial and ulnar styloid fracture, right wrist splint 5. Acute pain secondary to injury. 6. Past medical history of hypertension, hypothyroid, and hyperlipidemia. PLAN: Ms. Rizo is a 75-year-old female patient, recovering well from a left elbow dislocation,left patella fx and right wrist fx. The patient is not going to require surgery at this visit. She will follow up outpatient with orthopedic team for surgery. Restart home medication. -DVT ppx, SCD, IS and GI prophylaxis. Case Management is working with patient to select a rehab facility. Job ID: [id number] MTDD
[2020-10-01] MEDS: Polyethylene Glycol 3350 17 GM Packet PO SCH (08:31)
[2020-10-01] MEDS: Famotidine 20 MG TAB PO SCH (08:31)
[2020-10-01] MEDS: Cholecalciferol 1,000 UNITS (25 MCG) TAB PO SCH (08:31)
[2020-10-01] MEDS: Enoxaparin Sodium 40 MG/0.4 ML SYRINGE SC SCH (08:31)
[2020-10-01] MEDS: Vitamin E 400 UNITS CAP PO SCH (08:31)
[2020-10-01] MEDS: Calcium Carbonate 600 MG + Vit D TAB PO SCH (08:31)
[2020-10-01] MEDS: Lisinopril 10 MG TAB PO SCH ×2 (08:31→20:45)
[2020-10-01] MEDS: Gabapentin 300 MG CAP PO SCH ×2 (08:32→20:46)
[2020-10-01] MEDS: Senokot S 8.6-50 MG TAB PO SCH ×2 (08:32→20:45)
--- NOTE | 2020-10-01 13:40 | PRG ---
DATE OF SERVICE: 10/01/2020 SUBJECTIVE: The patient is admitted to the hospital after a ground level fall, which she sustained left lower extremity fractures. She was evaluated in the emergency department by Orthopedics and she will be managed nonoperatively initially with a delayed surgical procedure in 1 to 2 weeks for her left elbow fracture dislocation. Overnight, the patient's pain was controlled. She was tolerating a diet. She has not yet started working with therapy. PHYSICAL EXAMINATION: VITAL SIGNS: Temperature is 98.5, heart rate 87, blood pressure 147/73, respirations 14, oxygen saturation 99% on room air. GENERAL: The patient is resting comfortably in bed. She is awake, alert, conversant, appropriate. [place] Coma Scale is 15. HEENT: Unremarkable. LUNGS: Clear to auscultation bilaterally with good inspiratory and expiratory effort. HEART: Regular rate and rhythm. EXTREMITIES: Bilateral upper extremities are immobilized in well-padded splints. The left upper extremity has a sling in place also. Left lower extremity has a knee immobilizer in place. Extremities are neurovascularly intact x4. LABORATORY FINDINGS: There are no labs or radiographs reviewed this morning. ASSESSMENT: 1. Status post ground level fall. 2. Left nondisplaced patella fracture, treated in knee immobilizer and partial weightbearing. 3. Left elbow dislocation with associated fracture, treated nonoperatively initially. 4. Distal radius and ulnar styloid fracture of the right wrist, treated nonoperatively. 5. Acute pain secondary to above, improved. 6. History of hypertension, hypothyroidism, hyperlipidemia. PLAN: Plan will be to continue supportive care. Begin physical and occupational therapy and await placement decision. The patient will also be started on chemical VTE prophylaxis. The patient was evaluated this morning with Dr. Min during rounds. Job ID: [id number]
[2020-10-02] MEDS: Levothyroxine Sodium 100 MCG TAB PO SCH (05:20)
[2020-10-02] MEDS: Acetaminophen 325 MG TAB PO SCH ×2 (05:20→12:10)
[2020-10-02] MEDS: traMADol HCl 50 MG TAB PO PRN ×2 (05:21→12:10)
[2020-10-02] MEDS: Enoxaparin Sodium 40 MG/0.4 ML SYRINGE SC SCH (09:38)
[2020-10-02] MEDS: Vitamin E 400 UNITS CAP PO SCH (09:39)
[2020-10-02] MEDS: Polyethylene Glycol 3350 17 GM Packet PO SCH (09:39)
[2020-10-02] MEDS: Cyclobenzaprine 10 MG TAB PO PRN (09:39)
[2020-10-02] MEDS: Lisinopril 10 MG TAB PO SCH (09:39)
[2020-10-02] MEDS: Calcium Carbonate 600 MG + Vit D TAB PO SCH (09:40)
[2020-10-02] MEDS: Gabapentin 300 MG CAP PO SCH (09:40)
[2020-10-02] MEDS: Cholecalciferol 1,000 UNITS (25 MCG) TAB PO SCH (09:40)
[2020-10-02] MEDS: Senokot S 8.6-50 MG TAB PO SCH (09:40)
[2020-10-02] MEDS ORDERED: Senokot S 8.6-50 MG TAB PO SCH ×2 (10:15→21:00)
[2020-10-02 11:02] VITALS: BP 126/64; TEMP 98.3
--- NOTE | 2020-10-02 15:37 | DIS ---
DATE OF ADMISSION: 09/29/2020 DATE OF DISCHARGE: 10/02/2020 PRIMARY CARE PHYSICIAN: Dr. Darion Robert. DISCHARGE ATTENDING: Dr. Min. CONSULTS: Orthopedic Surgery, Dr. Conley. PROCEDURES: None. PRIMARY DIAGNOSES: Slip and fall, left nondisplaced patellar fracture, left elbow dislocation associated with fracture, distal radius and ulnar styloid fracture of right wrist, acute traumatic pain secondary to injuries. SECONDARY DIAGNOSES: Hypertension, hypothyroidism and hyperlipidemia. DISCHARGE MEDICATIONS: 1. Acetaminophen 650 mg p.o. q.6 hours. 2. Calcium plus D soft chewable tablets two tablets p.o. daily. 3. Vitamin D3, 2000 units p.o. daily. 4. Flexeril 5 mg p.o. three times a day p.r.n. muscle spasm. 5. Lovenox 40 mg subcu daily for two weeks for VTE prophylaxis. 6. Gabapentin 300 mg p.o. b.i.d. 7. Lactulose 20 g p.o. daily until the patient has a bowel movement. 8. Prevacid 24-hour p.o. daily. 9. Levothyroxine 100 mcg p.o. daily. 10. Lisinopril 10 mg p.o. b.i.d. 11. Zofran 4 mg ODT q.6 hours p.r.n. nausea, vomiting. 12. MiraLAX as needed for constipation. 13. Senokot as needed for constipation. 14. Tramadol one to two tablets 50 mg p.o. q.6 hours p.r.n. pain. 15. Vitamin E 400 units p.o. daily. 16. Ambien 5 mg p.o. at bedtime as needed. No discontinued medications. HISTORY OF PRESENT ILLNESS AND HOSPITAL COURSE: This is a 75-year-old female with past medical history of hypertension and hypothyroidism, who presented to the emergency room by EMS after falling in her house onto her tile floor. The patient reports she caught up in plastic wrap that was on the ground. The patient reported left upper arm deformity. The patient did report that she hit her head when she fell. The patient also reported some right forearm pain and left knee pain. The patient's left elbow was reduced in the emergency room. Bilateral upper extremities were splinted in the emergency room. The patient was also placed in a knee immobilizer for the left lower extremity. The patient was evaluated by Orthopedic Surgery, who determined that all of her injuries were non-operative at this time. Her brain CT showed no evidence of hemorrhage or mass effect. The patient's cervical spine CT showed no evidence of fracture or traumatic subluxation. The patient did deny loss of consciousness, nausea, or vomiting. The patient denied having any chest pain or shortness of breath prior to falling. The patient's pain was well controlled during her hospital stay. The patient was examined by Dr. Min on the day of discharge. Her exam was unremarkable including cardiopulmonary and GI exam. The patient was deemed stable for discharge to [facility]. Report was given to Dr. Case, who agreed to accept the patient today. DISPOSITION: Stable. DISCHARGE INSTRUCTIONS: 1. Location: [facility]. 2. Diet: Regular diet as tolerated. 3. Orthopedic limitations: The patient is weightbearing as tolerated, knee immobilizer at all times, left lower extremity, bilateral upper arm splints. 4. Followup: Follow up with Dr. Conley in 1 week for re-evaluation and repeat x- rays of her right wrist. 5. No need to follow up with Trauma Services. Please call for any questions. Greater than 50% of the 30 minutes were spent discussing medications and discharge instructions. Job ID: [id number] [facility]
== END 2020-10-02 14:15 | DRG 563 ==
LOC: ERS 14:36 → SURG B 18:12
PROVIDERS: ADMIT Surgery; ATTEND Surgery
PROC: 0PSLXZZ Reposition Left Ulna, External Approach (ICD-10-PCS; principal; 2020-09-29)
PROC: 2W3CX1Z Immobilization of Right Lower Arm using Splint (ICD-10-PCS; 2020-09-29)
DX: S82.002A Unspecified fracture of left patella, initial encounter for closed fracture (principal); S52.611A Displaced fracture of right ulna styloid process, initial encounter for closed fracture; S52.511A Displaced fracture of right radial styloid process, initial encounter for closed fracture; S42.402A Unspecified fracture of lower end of left humerus, initial encounter for closed fracture; I10 Essential (primary) hypertension; E03.9 Hypothyroidism, unspecified; E78.5 Hyperlipidemia, unspecified; S53.105A Unspecified dislocation of left ulnohumeral joint, initial encounter; W18.31XA Fall on same level due to stepping on an object, initial encounter; Y92.009 Unspecified place in unspecified non-institutional (private) residence as the place of occurrence of the external cause; Z87.891 Personal history of nicotine dependence; Z88.1 Allergy status to other antibiotic agents; Z88.0 Allergy status to penicillin; Z88.5 Allergy status to narcotic agent; Z88.8 Allergy status to other drugs, medicaments and biological substances
CPT/HCPCS: 36415; 70450; 72125; 80048; 80053; 81001; 83735; 84100; 85025; 85610; 85730; 87635; 93005; G0390; J1650; J2060; J2405; J2550; J3010; U0003; U0005

== ENCOUNTER 2020-10-03 17:18 | Inpatient (IN) | payer MEDICARE, BC ==
[2020-10-03] MEDS ORDERED: PROPOFOL 20 ML ONE (18:01)
[2020-10-03] MEDS ORDERED: Ondansetron PF 4 MG/2 ML Vial ONE (18:01)
[2020-10-03] MEDS ORDERED: Morphine 2 MG/ML VIAL SLOW IVP PRN (21:17)
[2020-10-03] MEDS ORDERED: Ondansetron ODT 4 MG TAB SL PRN (21:30)
[2020-10-03] MEDS ORDERED: Ondansetron PF 4 MG/2 ML Vial IVP PRN ×2 (21:30→23:42)
[2020-10-03 22:27] VITALS: BMI 25.0
[2020-10-03] MEDS ORDERED: Ondansetron ODT 4 MG TAB PO PRN (23:42)
[2020-10-03] MEDS ORDERED: Dextrose 5% in Water 1,000 ML IV PRN (23:42)
[2020-10-03] MEDS ORDERED: Dextrose 50% Abboject 50 ML SYRINGE SLOW IVP PRN (23:42)
[2020-10-03] MEDS ORDERED: hydrALAZINE 20 MG/ML VIAL SLOW IVP PRN (23:42)
[2020-10-03] MEDS ORDERED: traMADol HCl 50 MG TAB PO PRN (23:44)
[2020-10-04 06:18] LABS: #Eosinphils 0.1 thou/uL (0.0-0.7); #Lymphocytes 1.3 thou/uL (1.20-3.40); #Monocytes 0.6 thou/uL (0.11-0.59); #Neutrophils 5.9 thou/uL (1.40-6.50); %Basophils 0.3 % (0.0-1.0); %Eosinophils 1.2 % (0.0-10.0); %Lymphocytes 16.7 % (21.0-51.0); %Monocytes 7.9 % (0.0-10.0); %Neutrophils 73.8 % (42.0-75.0); Hemoglobin 11.8 g/dL (12.0-16.0); Mean Corpuscular HGB CONC 33.5 g/dL (32.0-36.0); Mean Corpuscular Hemoglobin 30.9 pg (27.0-31.0); Mean Corpuscular Volume 92.1 fL (78.0-98.0); Mean Platelet Volume 8.5 fL (7.4-10.4); Platelet Count 188 thou/uL (130-400); RBC Distribution Width 11.2 % (11.5-14.5); Red Blood Cell (RBC) Count 3.83 mill/uL (4.20-5.40); White Blood Cell (WBC) Count 8.1 thou/uL (4.8-10.8)
[2020-10-04 06:38] LABS: Anion Gap 14 mmol/L (10-20); BUN (Urea Nitrogen) 10 mg/dL (9.8-20.1); Calc. Creatinine Clearance 89 mL/min (70-130); Calcium 8.7 mg/dL (7.8-10.44); Carbon Dioxide 28 mmol/L (23-31); Chloride 96 mmol/L (98-107); Glucose 96 mg/dL (83-110); Magnesium 1.9 mg/dL (1.6-2.6); Phosphorus 3.3 mg/dL (2.3-4.7); Potassium 3.9 mmol/L (3.5-5.1); Sodium 134 mmol/L (136-145)
[2020-10-04] MEDS ORDERED: Zolpidem Tartrate 5 MG TAB PO PRN (06:53)
[2020-10-04] MEDS ORDERED: CEFAZOLIN 2 GM in Premix Bag 1 BAG IVPB SCH (07:30)
[2020-10-04] MEDS: Enoxaparin Sodium 40 MG/0.4 ML SYRINGE SC SCH (08:43)
[2020-10-04] MEDS: Gabapentin 300 MG CAP PO SCH ×2 (08:45→20:56)
[2020-10-04] MEDS: Cholecalciferol 1,000 UNITS (25 MCG) TAB PO SCH (08:45)
[2020-10-04] MEDS: Vitamin E 400 UNITS CAP PO SCH (08:46)
[2020-10-04] MEDS: Sulfameth/Trimethoprim DS 800-160mg TAB PO SCH ×2 (08:46→20:58)
[2020-10-04] MEDS: Calcium Carbonate 600 MG TAB PO SCH (08:46)
[2020-10-04] MEDS: Senokot S 8.6-50 MG TAB PO SCH (08:46)
[2020-10-04] MEDS: Polyethylene Glycol 3350 17 GM Packet PO SCH (08:47)
[2020-10-04] MEDS: Lisinopril 10 MG TAB PO SCH ×2 (08:47→20:57)
[2020-10-04] MEDS ORDERED: Famotidine 20 MG TAB PO SCH (09:00)
[2020-10-04] MEDS: Acetaminophen 500 MG TAB PO SCH ×3 (11:10→20:56)
[2020-10-04] MEDS: Phenazopyridine HCl 100 MG TAB PO SCH ×2 (13:56→17:48)
[2020-10-04] MEDS ORDERED: Acetaminophen 500 MG TAB PO SCH (21:00)
[2020-10-05] MEDS: Senokot S 8.6-50 MG TAB PO SCH ×3 (01:19→21:36)
[2020-10-05] MEDS: Acetaminophen 500 MG TAB PO SCH ×4 (02:34→21:35)
[2020-10-05] MEDS: Levothyroxine Sodium 100 MCG TAB PO SCH (05:49)
[2020-10-05] MEDS: traMADol HCl 50 MG TAB PO PRN ×2 (05:49→19:19)
[2020-10-05 07:46] LABS: SARS-CoV-2 NAA Rapid Test Not Detected (NotDetected)
[2020-10-05] MEDS: Lisinopril 10 MG TAB PO SCH ×2 (08:21→21:35)
[2020-10-05] MEDS: Sulfameth/Trimethoprim DS 800-160mg TAB PO SCH ×2 (08:21→21:35)
[2020-10-05] MEDS: Calcium Carbonate 600 MG TAB PO SCH (08:24)
[2020-10-05] MEDS: Enoxaparin Sodium 40 MG/0.4 ML SYRINGE SC SCH (08:25)
[2020-10-05] MEDS: Polyethylene Glycol 3350 17 GM Packet PO SCH (08:25)
[2020-10-05] MEDS: Gabapentin 300 MG CAP PO SCH ×3 (08:25→21:34)
[2020-10-05] MEDS: Cholecalciferol 1,000 UNITS (25 MCG) TAB PO SCH (08:25)
[2020-10-05] MEDS: Phenazopyridine HCl 100 MG TAB PO SCH ×3 (08:25→18:54)
[2020-10-05] MEDS: Vitamin E 400 UNITS CAP PO SCH (08:25)
[2020-10-05] MEDS ORDERED: Ondansetron PF 4 MG/2 ML Vial ONE (08:59)
[2020-10-05] MEDS ORDERED: Dexamethasone 20 MG/5 ML VIAL ONE (08:59)
[2020-10-05] MEDS ORDERED: Rocuronium Bromide 10 MG/ML (10ML VIAL) ONE (08:59)
[2020-10-05] MEDS ORDERED: Metoclopramide HCl 10 MG/2 ML VIAL ONE (08:59)
[2020-10-05] MEDS ORDERED: PROPOFOL 200 MG/20 ML VIAL ONE (08:59)
[2020-10-05] MEDS ORDERED: Glycopyrrolate 0.2 MG/ML 5 ML SYRINGE ONE (08:59)
[2020-10-05] MEDS ORDERED: PHENYLEPHRINE-NS 100 MCG/ML 10 ML SYRINGE ONE (08:59)
[2020-10-05] MEDS ORDERED: Lidocaine 1% PF 5 ML VIAL ONE (08:59)
[2020-10-05] MEDS: traMADol HCl 50 MG TAB PO SCH ×2 (12:53→18:54)
[2020-10-05] MEDS ORDERED: Famotidine/PF 20 mg/2ml Vial ONE (13:44)
[2020-10-05] MEDS ORDERED: Bupivacaine 0.25% HCL 30 ML VIAL ONE (13:48)
[2020-10-05] MEDS ORDERED: Lidocaine 1% w/Epinephrine 1:100K 20 ML VIAL ONE (13:48)
[2020-10-05] MEDS ORDERED: Fentanyl 100 MCG/2 ML VIAL ONE ×3 (13:52→16:54)
[2020-10-05] MEDS ORDERED: Promethazine HCl 25 MG/ML VIAL SLOW IVP PRN (14:50)
[2020-10-05] MEDS ORDERED: PACU-Morphine 4MG/ML VIAL SLOW IVP PRN (14:50)
[2020-10-05] MEDS ORDERED: Promethazine HCl 25 MG/ML VIAL IM PRN ×2 (14:50→18:36)
[2020-10-05] MEDS ORDERED: Fentanyl 100 MCG/2 ML VIAL SLOW IVP PRN (18:35)
[2020-10-05] MEDS: Cyclobenzaprine 10 MG TAB PO PRN (19:20)
[2020-10-05] MEDS: CEFAZOLIN 2 GM in Premix Bag 1 BAG IVPB SCH (21:36)
[2020-10-06] MEDS: traMADol HCl 50 MG TAB PO SCH ×4 (01:04→18:40)
[2020-10-06] MEDS: Acetaminophen 500 MG TAB PO SCH ×4 (02:47→22:00)
[2020-10-06] MEDS: Levothyroxine Sodium 100 MCG TAB PO SCH (05:37)
[2020-10-06] MEDS: CEFAZOLIN 2 GM in Premix Bag 1 BAG IVPB SCH (05:37)
[2020-10-06 05:40] LABS: #Lymphocytes 1.1 thou/uL (1.20-3.40); #Monocytes 0.8 thou/uL (0.11-0.59); #Neutrophils 8.8 thou/uL (1.40-6.50); %Basophils 0.1 % (0.0-1.0); %Eosinophils 0.3 % (0.0-10.0); %Lymphocytes 10.1 % (21.0-51.0); %Neutrophils 82.5 % (42.0-75.0); Hemoglobin 12.1 g/dL (12.0-16.0); Mean Corpuscular HGB CONC 33.6 g/dL (32.0-36.0); Mean Corpuscular Hemoglobin 30.6 pg (27.0-31.0); Mean Corpuscular Volume 91.1 fL (78.0-98.0); Platelet Count 236 thou/uL (130-400); RBC Distribution Width 11.4 % (11.5-14.5); Red Blood Cell (RBC) Count 3.95 mill/uL (4.20-5.40); White Blood Cell (WBC) Count 10.7 thou/uL (4.8-10.8)
[2020-10-06 06:03] LABS: Anion Gap 15 mmol/L (10-20); BUN (Urea Nitrogen) 18 mg/dL (9.8-20.1); Calc. Creatinine Clearance 83 mL/min (70-130); Calcium 8.4 mg/dL (7.8-10.44); Carbon Dioxide 24 mmol/L (23-31); Chloride 100 mmol/L (98-107); Glucose 99 mg/dL (83-110); Magnesium 2.1 mg/dL (1.6-2.6); Potassium 4.6 mmol/L (3.5-5.1); Sodium 134 mmol/L (136-145)
[2020-10-06] MEDS: Lisinopril 10 MG TAB PO SCH ×2 (08:52→22:00)
[2020-10-06] MEDS: Polyethylene Glycol 3350 17 GM Packet PO SCH (08:52)
[2020-10-06] MEDS: Senokot S 8.6-50 MG TAB PO SCH ×2 (08:52→22:00)
[2020-10-06] MEDS: Calcium Carbonate 600 MG TAB PO SCH (08:52)
[2020-10-06] MEDS: Gabapentin 300 MG CAP PO SCH ×2 (08:52→22:01)
[2020-10-06] MEDS: Enoxaparin Sodium 40 MG/0.4 ML SYRINGE SC SCH (08:52)
[2020-10-06] MEDS: Phenazopyridine HCl 100 MG TAB PO SCH ×3 (08:53→18:39)
[2020-10-06] MEDS: Cholecalciferol 1,000 UNITS (25 MCG) TAB PO SCH (08:53)
[2020-10-06] MEDS: Vitamin E 400 UNITS CAP PO SCH (08:53)
[2020-10-06] MEDS: Sulfameth/Trimethoprim DS 800-160mg TAB PO SCH ×2 (08:54→22:00)
[2020-10-06] MEDS: traMADol HCl 50 MG TAB PO PRN (16:10)
[2020-10-07] MEDS: traMADol HCl 50 MG TAB PO SCH ×4 (02:02→18:37)
[2020-10-07] MEDS: Cyclobenzaprine 10 MG TAB PO PRN (04:32)
[2020-10-07] MEDS: Acetaminophen 500 MG TAB PO SCH ×4 (04:32→20:46)
[2020-10-07] MEDS: Levothyroxine Sodium 100 MCG TAB PO SCH (05:00)
[2020-10-07] MEDS: Vitamin E 400 UNITS CAP PO SCH (08:47)
[2020-10-07] MEDS: Senokot S 8.6-50 MG TAB PO SCH ×2 (08:47→20:44)
[2020-10-07] MEDS: Polyethylene Glycol 3350 17 GM Packet PO SCH (08:47)
[2020-10-07] MEDS: Cholecalciferol 1,000 UNITS (25 MCG) TAB PO SCH (08:48)
[2020-10-07] MEDS: Sulfameth/Trimethoprim DS 800-160mg TAB PO SCH (08:48)
[2020-10-07] MEDS: Calcium Carbonate 600 MG TAB PO SCH (08:48)
[2020-10-07] MEDS: Lisinopril 10 MG TAB PO SCH ×2 (08:48→20:47)
[2020-10-07] MEDS: Phenazopyridine HCl 100 MG TAB PO SCH ×3 (08:48→18:32)
[2020-10-07] MEDS: Enoxaparin Sodium 40 MG/0.4 ML SYRINGE SC SCH (08:49)
[2020-10-07] MEDS: Gabapentin 300 MG CAP PO SCH ×2 (08:50→20:45)
[2020-10-07] MEDS ORDERED: Enoxaparin Sodium 40 MG/0.4 ML SYRINGE SC SCH (21:00)
[2020-10-08] MEDS: traMADol HCl 50 MG TAB PO SCH ×4 (00:05→18:03)
[2020-10-08] MEDS: Levothyroxine Sodium 100 MCG TAB PO SCH (03:51)
[2020-10-08] MEDS: Acetaminophen 500 MG TAB PO SCH ×4 (03:51→20:08)
[2020-10-08] MEDS: Calcium Carbonate 600 MG TAB PO SCH (09:05)
[2020-10-08] MEDS: Vitamin E 400 UNITS CAP PO SCH (09:05)
[2020-10-08] MEDS: Cholecalciferol 1,000 UNITS (25 MCG) TAB PO SCH (09:06)
[2020-10-08] MEDS: Gabapentin 300 MG CAP PO SCH ×2 (09:06→20:08)
[2020-10-08] MEDS: Phenazopyridine HCl 100 MG TAB PO SCH ×3 (09:07→18:03)
[2020-10-08] MEDS: Lisinopril 10 MG TAB PO SCH ×2 (09:08→20:08)
[2020-10-08] MEDS: Senokot S 8.6-50 MG TAB PO SCH (09:08)
[2020-10-08] MEDS: Polyethylene Glycol 3350 17 GM Packet PO SCH (09:08)
[2020-10-08 15:58] VITALS: TEMP 98.8
[2020-10-08 20:11] VITALS: BP 124/69
== END 2020-10-08 20:15 | DRG 501 ==
LOC: ERS 17:18 → SURG A 19:29 → OBSVTOIN 10-05 11:09
PROVIDERS: ADMIT Specialist; ATTEND Specialist
PROC: 0RSMXZZ Reposition Left Elbow Joint, External Approach (ICD-10-PCS; 2020-10-04)
PROC: 0MQ40ZZ Repair Left Elbow Bursa and Ligament, Open Approach (ICD-10-PCS; principal; 2020-10-05)
PROC: 0PSL04Z Reposition Left Ulna with Internal Fixation Device, Open Approach (ICD-10-PCS; 2020-10-05)
PROC: 0PSJ04Z Reposition Left Radius with Internal Fixation Device, Open Approach (ICD-10-PCS; 2020-10-05)
DX: S52.122A Displaced fracture of head of left radius, initial encounter for closed fracture (principal); S52.511A Displaced fracture of right radial styloid process, initial encounter for closed fracture; S82.002A Unspecified fracture of left patella, initial encounter for closed fracture; N39.0 Urinary tract infection, site not specified; S52.611A Displaced fracture of right ulna styloid process, initial encounter for closed fracture; Z20.822 Contact with and (suspected) exposure to COVID-19; M24.422 Recurrent dislocation, left elbow; I10 Essential (primary) hypertension; E03.9 Hypothyroidism, unspecified; E78.5 Hyperlipidemia, unspecified; S52.042A Displaced fracture of coronoid process of left ulna, initial encounter for closed fracture; W18.30XA Fall on same level, unspecified, initial encounter; G47.00 Insomnia, unspecified; Z90.710 Acquired absence of both cervix and uterus; Z79.899 Other long term (current) drug therapy
CPT/HCPCS: 24640; 36415; 71045; 76000; 80048; 83735; 84100; 85025; 87070; 87205; 96374; 96375; 96376; 99152; 99153; C1713; G0378; G0390; J0690; J1100; J1650; J2405; J2550; J2704; J2765; J3010; S0020; S0028; U0002

== ENCOUNTER 2020-11-23 10:08 | Outpatient (CLI) | payer MEDICARE, BC | END 2020-11-23 10:09 | disposition home or self-care (01) | LOC: BICRAD 10:08 | PROVIDERS: ATTEND Specialist | DX: M25.552 Pain in left hip (principal) ==

== ENCOUNTER 2020-12-17 10:02 | Outpatient (CLI) | payer MEDICARE, BC | END 2020-12-17 10:03 | disposition home or self-care (01) | LOC: TBSIIMAG 10:02 | PROVIDERS: ATTEND Anesthesiology Pain Medicine | DX: M47.22 Other spondylosis with radiculopathy, cervical region (principal); Z98.890 Other specified postprocedural states | CPT/HCPCS: 72141 ==

== ENCOUNTER 2021-03-13 09:24 | Outpatient (CLI) | payer MEDICARE, BC | END 2021-03-13 09:25 | disposition home or self-care (01) | LOC: BICMAMMO 09:24 | PROVIDERS: ATTEND Specialist | DX: Z12.31 Encounter for screening mammogram for malignant neoplasm of breast (principal); Z80.3 Family history of malignant neoplasm of breast | CPT/HCPCS: 77063; 77067 ==

== ENCOUNTER 2021-07-03 14:42 | Outpatient (CLI) | payer MEDICARE, BC | END 2021-07-03 14:43 | disposition home or self-care (01) | LOC: CT 14:42 | PROVIDERS: ATTEND Internal Medicine Critical Care Medicine | DX: R91.1 Solitary pulmonary nodule (principal); R91.8 Other nonspecific abnormal finding of lung field | CPT/HCPCS: 71250 ==

== ENCOUNTER 2021-08-21 22:38 | Inpatient (IN) | payer OTHER, MEDICARE, BC ==
[2021-08-21 23:24] LABS: #Basophils 0.1 thou/uL (0.0-0.2); #Eosinphils 0.2 thou/uL (0.0-0.7); #Monocytes 0.5 thou/uL (0.11-0.59); #Neutrophils 3.6 thou/uL (1.40-6.50); %Basophils 1.2 % (0.0-1.0); %Eosinophils 2.5 % (0.0-10.0); %Lymphocytes 31.4 % (21.0-51.0); %Monocytes 8.1 % (0.0-10.0); %Neutrophils 56.8 % (42.0-75.0); Hemoglobin 12.3 g/dL (12.0-16.0); Mean Corpuscular HGB CONC 34.1 g/dL (32.0-36.0); Mean Corpuscular Hemoglobin 30.8 pg (27.0-31.0); Mean Corpuscular Volume 90.5 fL (78.0-98.0); Platelet Count 201 thou/uL (130-400); RBC Distribution Width 11.4 % (11.5-14.5); Red Blood Cell (RBC) Count 3.98 mill/uL (4.20-5.40); White Blood Cell (WBC) Count 6.3 thou/uL (4.8-10.8)
[2021-08-21 23:43] LABS: ALT (SGPT) 10 U/L (8-55); AST (SGOT) 15 U/L (5-34); Albumin 3.5 g/dL (3.4-4.8); Alkaline Phosphatase 84 U/L (40-110); Anion Gap 12 mmol/L (10-20); BUN (Urea Nitrogen) 15 mg/dL (9.8-20.1); Bilirubin, Total 0.2 mg/dL (0.2-1.2); Calc. Creatinine Clearance 0 mL/min (70-130); Calcium 9.2 mg/dL (7.8-10.44); Carbon Dioxide 24 mmol/L (23-31); Chloride 108 mmol/L (98-107); Globulin 2.5 g/dL (2.4-3.5); Glucose 108 mg/dL (83-110); Lipase 15 U/L (8-78); Potassium 3.8 mmol/L (3.5-5.1); Sodium 140 mmol/L (136-145)
[2021-08-22 00:04] LABS: CKMB 1.7 ng/mL (0-6.6)
[2021-08-22] MEDS ORDERED: Clopidogrel Bisulfate 75 MG TAB ONE (00:35)
[2021-08-22] MEDS ORDERED: Dextrose 5 % And 0.9 % NaCl 1,000 ML IV SCH (02:00)
[2021-08-22 02:16] VITALS: BMI 25.3
[2021-08-22 05:11] LABS: Troponin I 0.123 ng/mL (< 0.028)
[2021-08-22 08:01] LABS: Troponin I 0.103 ng/mL (< 0.028)
[2021-08-22] MEDS ORDERED: Nitroglycerin 0.4 MG TAB (25 Tab Bottle) SL PRN (08:18)
[2021-08-22] MEDS ORDERED: Regadenoson 0.4 MG/5 ML SYRINGE ONE (09:26)
[2021-08-22 12:31] LABS: SARS-CoV-2 PCR by NAA Not Detected (NotDetected)
[2021-08-22] MEDS: Aspirin Chewable 81 MG TAB PO SCH (13:16)
[2021-08-22] MEDS: Lisinopril 20 MG TAB PO SCH (13:16)
[2021-08-22] MEDS: Pantoprazole 40 MG VIAL IVP SCH (13:17)
[2021-08-22] MEDS: Sodium Chloride 0.9% 1,000 ML IV SCH (13:18)
[2021-08-22] MEDS ORDERED: Levothyroxine Sodium 88 MCG TAB PO SCH (18:15)
[2021-08-22] MEDS ORDERED: Communication Order-Pharmacy FS SCH (18:15)
[2021-08-22] MEDS ORDERED: Sodium Chloride 0.9% 500 ML IV SCH (18:15)
[2021-08-22] MEDS ORDERED: Zolpidem Tartrate 5 MG TAB PO PRN (18:34)
[2021-08-23] MEDS: Sodium Chloride 0.9% 1,000 ML IV SCH ×2 (01:24→14:06)
[2021-08-23] MEDS ORDERED: Levothyroxine Sodium 88 MCG TAB PO SCH (06:00)
[2021-08-23] MEDS: Aspirin Chewable 81 MG TAB PO SCH (09:40)
[2021-08-23] MEDS: Lisinopril 20 MG TAB PO SCH (09:40)
[2021-08-23] MEDS: Pantoprazole 40 MG VIAL IVP SCH (09:42)
[2021-08-23] MEDS ORDERED: Lidocaine 1% (PF) 30 ML VIAL ONE (12:58)
[2021-08-23] MEDS ORDERED: Fentanyl 100 MCG/2 ML VIAL ONE (14:09)
[2021-08-23] MEDS ORDERED: Heparin 10,000 UNITS/ 10 ML VIAL ONE ×2 (14:31→15:11)
[2021-08-23] MEDS ORDERED: Nitroglycerin 4.9 GM Bottle ONE (14:35)
[2021-08-23] MEDS ORDERED: hydrALAZINE 20 MG/ML VIAL ONE (14:44)
[2021-08-23] MEDS ORDERED: Nitroglycerin 100MG/250ML BOT 250 ML ONE (14:44)
[2021-08-23] MEDS ORDERED: Adenosine 6 MG/2 ML VIAL ONE (14:50)
[2021-08-23] MEDS ORDERED: Fentanyl 250 MCG/5 ML VIAL ONE (15:01)
[2021-08-23] MEDS ORDERED: Midazolam HCl 5 mg/5 ml Vial ONE (15:06)
[2021-08-23] MEDS ORDERED: Dexmedetomidine 200 MCG/2 ML VIAL ONE (15:06)
[2021-08-23] MEDS ORDERED: Albumin 5% 0 ML ONE (15:11)
[2021-08-23] MEDS ORDERED: Sodium Chloride 0.9% 30 ML ONE (15:11)
[2021-08-23] MEDS ORDERED: Thrombin 5000 UNITS/5 ML VIAL ONE (15:13)
[2021-08-23] MEDS ORDERED: Heparin 5,000 UNITS/ML VIAL ONE (15:13)
[2021-08-23] MEDS ORDERED: Calcium Chloride 1 GM/10 ML Abboject SYRINGE ONE ×2 (15:13→15:22)
[2021-08-23] MEDS ORDERED: Papaverine 60 MG/2 ML VIAL ONE (15:13)
[2021-08-23] MEDS ORDERED: Magnesium Sulfate 1 GM/2 ML VIAL ONE (15:22)
[2021-08-23] MEDS ORDERED: Norepinephrine 4 MG/4 ML VIAL ONE (15:22)
[2021-08-23] MEDS ORDERED: Glycopyrrolate 0.2 MG/ML 5 ML SYRINGE ONE (15:22)
[2021-08-23] MEDS ORDERED: Rocuronium Bromide 10 MG/ML (10ML VIAL) ONE (15:22)
[2021-08-23] MEDS ORDERED: Aminocaproic Acid 5 GM/20 ML VIAL ONE (15:22)
[2021-08-23] MEDS ORDERED: Lidocaine 1% PF 5 ML VIAL ONE ×2 (15:22)
[2021-08-23] MEDS ORDERED: Cardioplegic Soln 1,000 ML BAG ONE (15:22)
[2021-08-23] MEDS ORDERED: Potassium Chloride 60 MEQ/30 ML VIAL ONE (15:22)
[2021-08-23] MEDS ORDERED: Dexamethasone 20 MG/5 ML VIAL ONE (15:22)
[2021-08-23] MEDS ORDERED: PROPOFOL 200 MG/20 ML VIAL ONE (15:22)
[2021-08-23] MEDS ORDERED: Ondansetron PF 4 MG/2 ML Vial ONE ×2 (15:22→15:24)
[2021-08-23] MEDS ORDERED: Heparin 30,000 units/30 ml VIAL ONE (15:22)
[2021-08-23] MEDS ORDERED: Lidocaine 2% PF 100 mg/5 ml Syringe ONE (15:22)
[2021-08-23] MEDS ORDERED: Protamine Sulfate 250 MG/25 ML VIAL ONE (15:22)
[2021-08-23] MEDS ORDERED: Sodium Bicarb 50 MEQ/50 ML Abboject 8.4% SYRINGE ONE (15:22)
[2021-08-23] MEDS ORDERED: Iopamidol 370 76% 100 ML VIAL ONE (15:45)
[2021-08-23] MEDS ORDERED: Iopamidol 370 76% 50 ML VIAL FS ONE (15:45)
[2021-08-23] MEDS ORDERED: PHENYLEPHRINE-NS 100 MCG/ML 10 ML SYRINGE ONE (16:24)
[2021-08-23] MEDS ORDERED: SUGAMMADEX SODIUM 200 MG/2 ML VIAL ONE (16:33)
[2021-08-23] MEDS ORDERED: Dexamethasone 4 mg/ml Vial ONE (16:45)
[2021-08-23] MEDS ORDERED: Bupivacaine PF 0.5% 30 ML VIAL ONE (16:45)
[2021-08-23] MEDS ORDERED: EPINEPHrine 1 MG/ML AMP ONE (16:45)
[2021-08-23] MEDS ORDERED: Mag-Al 1200 mg/1200 mg/30 ML UDCUP PO PRN (18:15)
[2021-08-23] MEDS ORDERED: Norepinephrine 8 MG/0.9% NS 250 ML IVPB PRN (18:15)
[2021-08-23] MEDS ORDERED: traMADol HCl 50 MG TAB PO PRN ×2 (18:15)
[2021-08-23] MEDS ORDERED: Promethazine HCl 25 MG/ML VIAL IM PRN (18:15)
[2021-08-23] MEDS ORDERED: hydrALAZINE 20 MG/ML VIAL SLOW IVP PRN (18:15)
[2021-08-23] MEDS ORDERED: D5 1/2 NS w/20 mEq KCL 1,000 ML IV SCH (18:15)
[2021-08-23] MEDS ORDERED: Fentanyl 100 MCG/2 ML VIAL SLOW IVP PRN (18:15)
[2021-08-23] MEDS ORDERED: Bisacodyl 5 MG TAB PO PRN (18:15)
[2021-08-23] MEDS ORDERED: Nitroglycerin 50 MG/250 ML BOT 250 ML IVPB PRN (18:15)
[2021-08-23] MEDS ORDERED: Potassium Chloride 20 MEQ/100 ML PREMIX BAG IVPB PRN (18:15)
[2021-08-23] MEDS ORDERED: Hetastarch 6% 500 ML 500 ML IVPB PRN (18:15)
[2021-08-23] MEDS ORDERED: Magnesium 2 GM/50 ML 2 GM in Premix Bag 1 BAG IVPB SCH (18:15)
[2021-08-23] MEDS ORDERED: Morphine 2 MG/ML VIAL SLOW IVP PRN (18:15)
[2021-08-23] MEDS ORDERED: Bisacodyl 10 MG SUPP PR PRN (18:15)
[2021-08-23 18:27] LABS: Hemoglobin 12.6 g/dL (12.0-16.0); Mean Corpuscular HGB CONC 32.7 g/dL (32.0-36.0); Mean Corpuscular Volume 91.9 fL (78.0-98.0); Mean Platelet Volume 7.9 fL (7.4-10.4); Platelet Count 190 thou/uL (130-400); RBC Distribution Width 11.6 % (11.5-14.5); Red Blood Cell (RBC) Count 4.18 mill/uL (4.20-5.40); White Blood Cell (WBC) Count 21.3 thou/uL (4.8-10.8)
[2021-08-23] MEDS ORDERED: Albumin 5% 500 ML ONE (18:32)
[2021-08-23 18:39] LABS: INR-International Normal Ratio 1.1; Prothrombin Time 14.5 sec (12.0-14.7)
[2021-08-23] MEDS: Ondansetron PF 4 MG/2 ML Vial IVP PRN (18:41)
[2021-08-23 18:45] LABS: Anion Gap 13 mmol/L (10-20); BUN (Urea Nitrogen) 11 mg/dL (9.8-20.1); Band 16 % (5-11); Calc. Creatinine Clearance 89 mL/min (70-130); Calcium 8.4 mg/dL (7.8-10.44); Carbon Dioxide 21 mmol/L (23-31); Chloride 111 mmol/L (98-107); Eosinophils 1 % (0-10); Glucose 169 mg/dL (83-110); Lymphocytes 15 % (21-51); MDiff Complete? YES; Metamyelocyte 1 % (0-0); Monocytes 3 % (0-10); Neutrophil 63 % (42-75); Platelet Morphology Comment Appears Adequate; Potassium 4.1 mmol/L (3.5-5.1); RBC Morphology Normal; Reactive Lymphocytes 1 % (0-10); Sodium 141 mmol/L (136-145)
[2021-08-23] MEDS ORDERED: Insulin Regular 300 UNITS/3 ML VIAL SC PRN (18:45)
[2021-08-23] MEDS ORDERED: HUMULIN R 100 UNITS in Sodium Chloride 0.9% 100 ML IVPB SCH (18:45)
[2021-08-23] MEDS ORDERED: Lantus 1000 UNITS/10 ML VIAL SC PRN (18:45)
[2021-08-23] MEDS ORDERED: Dextrose 5% in Water 1,000 ML IV PRN (18:45)
[2021-08-23] MEDS ORDERED: Dextrose 50% Abboject 50 ML SYRINGE SLOW IVP PRN (18:45)
[2021-08-23] MEDS: Fentanyl 100 MCG/2 ML VIAL SLOW IVP PRN ×2 (18:56→21:25)
[2021-08-23] MEDS: Famotidine/PF 20 mg/2ml Vial SLOW IVP SCH (20:00)
[2021-08-23] MEDS: Atorvastatin Calcium 40 MG TAB PO SCH (20:52)
[2021-08-23] MEDS: ceFAZolin 2 GM/Dextrose 50 ML 2 GM in Premix Bag 1 BAG IVPB SCH (21:07)
[2021-08-23] MEDS: Acetaminophen 325 MG TAB PO PRN (23:18)
[2021-08-23] MEDS ORDERED: Ketorolac Tromethamine 30 MG/ML VIAL IVP SCH (23:59)
[2021-08-24 00:46] LABS: Hemoglobin 11.8 g/dL (12.0-16.0)
[2021-08-24 01:00] LABS: Potassium 4.1 mmol/L (3.5-5.1)
[2021-08-24] MEDS: Fentanyl 100 MCG/2 ML VIAL SLOW IVP PRN ×4 (03:05→20:46)
[2021-08-24 04:41] LABS: #Lymphocytes 0.9 thou/uL (1.20-3.40); #Monocytes 0.6 thou/uL (0.11-0.59); #Neutrophils 13.4 thou/uL (1.40-6.50); %Eosinophils 0.2 % (0.0-10.0); %Lymphocytes 6.1 % (21.0-51.0); %Neutrophils 89.8 % (42.0-75.0); Hemoglobin 10.8 g/dL (12.0-16.0); Mean Corpuscular HGB CONC 33.3 g/dL (32.0-36.0); Mean Corpuscular Hemoglobin 30.8 pg (27.0-31.0); Mean Corpuscular Volume 92.4 fL (78.0-98.0); Mean Platelet Volume 8.7 fL (7.4-10.4); Platelet Count 191 thou/uL (130-400); RBC Distribution Width 11.7 % (11.5-14.5); Red Blood Cell (RBC) Count 3.52 mill/uL (4.20-5.40)
[2021-08-24 04:56] LABS: Anion Gap 9 mmol/L (10-20); BUN (Urea Nitrogen) 13 mg/dL (9.8-20.1); Calc. Creatinine Clearance 82 mL/min (70-130); Calcium 8.2 mg/dL (7.8-10.44); Carbon Dioxide 24 mmol/L (23-31); Chloride 109 mmol/L (98-107); Glucose 135 mg/dL (83-110); Potassium 4.1 mmol/L (3.5-5.1); Sodium 138 mmol/L (136-145)
[2021-08-24] MEDS: ceFAZolin 2 GM/Dextrose 50 ML 2 GM in Premix Bag 1 BAG IVPB SCH ×2 (04:59→13:15)
[2021-08-24] MEDS: Famotidine/PF 20 mg/2ml Vial SLOW IVP SCH ×2 (08:18→20:36)
[2021-08-24] MEDS: Magnesium 2 GM/50 ML 2 GM in Premix Bag 1 BAG IVPB SCH (08:18)
[2021-08-24] MEDS: Acetaminophen 325 MG TAB PO PRN ×2 (11:02→11:22)
[2021-08-24] MEDS ORDERED: Atropine Sulfate 1 mg/10 ml Syringe ONE (11:15)
[2021-08-24] MEDS: Ondansetron PF 4 MG/2 ML Vial IVP PRN (18:04)
[2021-08-24] MEDS: Atorvastatin Calcium 40 MG TAB PO SCH (20:36)
[2021-08-25] MEDS: Fentanyl 100 MCG/2 ML VIAL SLOW IVP PRN ×3 (00:13→08:45)
[2021-08-25 04:27] LABS: #Eosinphils 0.1 thou/uL (0.0-0.7); #Lymphocytes 1.8 thou/uL (1.20-3.40); #Monocytes 0.9 thou/uL (0.11-0.59); #Neutrophils 10.9 thou/uL (1.40-6.50); %Basophils 0.3 % (0.0-1.0); %Eosinophils 0.4 % (0.0-10.0); %Monocytes 6.8 % (0.0-10.0); %Neutrophils 79.4 % (42.0-75.0); Mean Corpuscular HGB CONC 32.6 g/dL (32.0-36.0); Mean Corpuscular Hemoglobin 30.4 pg (27.0-31.0); Mean Corpuscular Volume 93.2 fL (78.0-98.0); Mean Platelet Volume 8.5 fL (7.4-10.4); Platelet Count 157 thou/uL (130-400); RBC Distribution Width 11.7 % (11.5-14.5); Red Blood Cell (RBC) Count 3.27 mill/uL (4.20-5.40); White Blood Cell (WBC) Count 13.8 thou/uL (4.8-10.8)
[2021-08-25 04:47] LABS: Anion Gap 8 mmol/L (10-20); BUN (Urea Nitrogen) 14 mg/dL (9.8-20.1); Calc. Creatinine Clearance 94 mL/min (70-130); Calcium 8.1 mg/dL (7.8-10.44); Carbon Dioxide 27 mmol/L (23-31); Chloride 104 mmol/L (98-107); Glucose 116 mg/dL (83-110); Potassium 4.1 mmol/L (3.5-5.1); Sodium 135 mmol/L (136-145)
[2021-08-25] MEDS: Ondansetron PF 4 MG/2 ML Vial IVP PRN (07:09)
[2021-08-25] MEDS ORDERED: Sodium Chloride 0.9% 250 ML IVPB SCH (07:15)
[2021-08-25] MEDS ORDERED: Digoxin 0.5 MG/2 ML AMP SLOW IVP SCH (07:15)
[2021-08-25] MEDS ORDERED: Diltiazem HCl 125 MG, Admixture Fee 1 EACH in Sodium Chloride 0.9% 100 ML IVPB SCH (07:15)
[2021-08-25] MEDS: Acetaminophen 325 MG TAB PO PRN ×3 (07:51→20:46)
[2021-08-25] MEDS: Magnesium 2 GM/50 ML 2 GM in Premix Bag 1 BAG IVPB SCH (07:52)
[2021-08-25] MEDS ORDERED: FLU VACC QS2021-22(65YR UP)/PF 240 MCG/0.7 ML SYRINGE IM ONE (09:00)
[2021-08-25] MEDS: Famotidine/PF 20 mg/2ml Vial SLOW IVP SCH (20:26)
[2021-08-25] MEDS: Aspirin 325 MG TAB PO SCH (20:26)
[2021-08-25] MEDS: Atorvastatin Calcium 40 MG TAB PO SCH (20:46)
[2021-08-25] MEDS ORDERED: Zolpidem Tartrate 5 MG TAB PO PRN (21:30)
[2021-08-25] MEDS: Guaifenesin DM 100-10/5 ML UDCUP PO PRN (21:38)
[2021-08-26 03:43] LABS: #Eosinphils 0.1 thou/uL (0.0-0.7); #Lymphocytes 1.4 thou/uL (1.20-3.40); #Monocytes 0.8 thou/uL (0.11-0.59); #Neutrophils 10.4 thou/uL (1.40-6.50); %Basophils 0.1 % (0.0-1.0); %Eosinophils 1.1 % (0.0-10.0); %Lymphocytes 10.7 % (21.0-51.0); %Neutrophils 82.1 % (42.0-75.0); Mean Corpuscular HGB CONC 33.2 g/dL (32.0-36.0); Mean Corpuscular Hemoglobin 30.7 pg (27.0-31.0); Mean Corpuscular Volume 92.5 fL (78.0-98.0); Mean Platelet Volume 8.4 fL (7.4-10.4); Platelet Count 156 thou/uL (130-400); RBC Distribution Width 11.5 % (11.5-14.5); Red Blood Cell (RBC) Count 3.27 mill/uL (4.20-5.40); White Blood Cell (WBC) Count 12.7 thou/uL (4.8-10.8)
[2021-08-26 04:08] LABS: Anion Gap 13 mmol/L (10-20); BUN (Urea Nitrogen) 12 mg/dL (9.8-20.1); Calc. Creatinine Clearance 99 mL/min (70-130); Calcium 8.5 mg/dL (7.8-10.44); Carbon Dioxide 26 mmol/L (23-31); Chloride 103 mmol/L (98-107); Glucose 116 mg/dL (83-110); Sodium 138 mmol/L (136-145)
[2021-08-26] MEDS: Morphine 4 MG/ML VIAL SLOW IVP PRN ×3 (05:15→23:58)
[2021-08-26] MEDS ORDERED: Aspirin Chewable 81 MG TAB PO SCH (09:00)
[2021-08-26] MEDS ORDERED: Vancomycin HCl 1.5 GM in Sodium Chloride 0.9% 250 ML 300 ML IVPB SCH (09:15)
[2021-08-26] MEDS ORDERED: ceFAZolin 2 GM/Dextrose 50 ML 2 GM in Premix Bag 1 BAG IVPB SCH (09:15)
[2021-08-26] MEDS: Polyethylene Glycol 3350 17 GM Packet PO SCH (09:52)
[2021-08-26] MEDS: Acetaminophen 325 MG TAB PO PRN (10:42)
[2021-08-26] MEDS: Guaifenesin DM 100-10/5 ML UDCUP PO PRN (12:04)
[2021-08-26] MEDS: Ibuprofen 800 MG TAB PO PRN (16:45)
[2021-08-26] MEDS: Atorvastatin Calcium 40 MG TAB PO SCH (21:28)
[2021-08-27] MEDS: Ibuprofen 800 MG TAB PO PRN (01:56)
[2021-08-27] MEDS: Morphine 4 MG/ML VIAL SLOW IVP PRN ×3 (06:13→12:43)
[2021-08-27] MEDS: Acetaminophen 325 MG TAB PO PRN ×2 (06:14→21:53)
[2021-08-27] MEDS: Pantoprazole 40 MG VIAL IVP SCH (09:20)
[2021-08-27] MEDS: Polyethylene Glycol 3350 17 GM Packet PO SCH (09:28)
[2021-08-27] MEDS ORDERED: Vancomycin 1.5 GRAM/300 ML BAG 1.5 GM in Premix Bag 1 BAG IVPB SCH (11:00)
[2021-08-27] MEDS: Lactated Ringer's 1,000 ML IV SCH ×2 (11:14→14:55)
[2021-08-27] MEDS ORDERED: Dexmedetomidine 200 MCG/2 ML VIAL ONE (12:35)
[2021-08-27] MEDS ORDERED: Fentanyl 100 MCG/2 ML VIAL ONE ×2 (12:35→13:59)
[2021-08-27] MEDS ORDERED: Lidocaine 1% PF 5 ML VIAL ONE (13:07)
[2021-08-27] MEDS ORDERED: PROPOFOL 200 MG/20 ML VIAL ONE (13:07)
[2021-08-27] MEDS ORDERED: Ondansetron PF 4 MG/2 ML Vial ONE (13:07)
[2021-08-27] MEDS ORDERED: PHENYLEPHRINE-NS 100 MCG/ML 10 ML SYRINGE ONE (13:07)
[2021-08-27] MEDS ORDERED: Dexamethasone 20 MG/5 ML VIAL ONE (13:07)
[2021-08-27] MEDS ORDERED: Glycopyrrolate 0.2 MG/ML 5 ML SYRINGE ONE (13:07)
[2021-08-27] MEDS ORDERED: Rocuronium Bromide 10 MG/ML (10ML VIAL) ONE (13:07)
[2021-08-27] MEDS ORDERED: Bupivacaine 0.25% HCL 30 ML VIAL ONE (13:43)
[2021-08-27] MEDS ORDERED: Ropivacaine 0.5% HCl/PF (150 MG/30 ML VIAL) ONE (13:45)
[2021-08-27] MEDS ORDERED: Phenylephrine 10 MG/ML VIAL ONE (13:46)
[2021-08-27] MEDS: Ondansetron PF 4 MG/2 ML Vial IVP PRN (15:38)
[2021-08-27] MEDS: Amiodarone 200 MG TAB PO SCH (21:53)
[2021-08-27] MEDS: Atorvastatin Calcium 40 MG TAB PO SCH (21:54)
[2021-08-27] MEDS: ceFAZolin 2 GM/Dextrose 50 ML 2 GM in Premix Bag 1 BAG IVPB SCH (21:54)
[2021-08-28] MEDS: ceFAZolin 2 GM/Dextrose 50 ML 2 GM in Premix Bag 1 BAG IVPB SCH (05:52)
[2021-08-28] MEDS: Acetaminophen 325 MG TAB PO PRN ×2 (06:24→23:09)
[2021-08-28] MEDS: Pantoprazole 40 MG VIAL IVP SCH (08:12)
[2021-08-28] MEDS: Ondansetron PF 4 MG/2 ML Vial IVP PRN (08:13)
[2021-08-28] MEDS: Morphine 4 MG/ML VIAL SLOW IVP PRN ×2 (08:13→15:20)
[2021-08-28] MEDS: Ibuprofen 800 MG TAB PO PRN ×2 (08:14→20:30)
[2021-08-28] MEDS: Amiodarone 200 MG TAB PO SCH ×2 (08:14→20:32)
[2021-08-28 08:36] LABS: #Eosinphils 0.1 thou/uL (0.0-0.7); #Lymphocytes 1.1 thou/uL (1.20-3.40); #Monocytes 0.6 thou/uL (0.11-0.59); %Basophils 0.1 % (0.0-1.0); %Eosinophils 0.5 % (0.0-10.0); %Lymphocytes 10.8 % (21.0-51.0); %Monocytes 6.2 % (0.0-10.0); %Neutrophils 82.4 % (42.0-75.0); Hemoglobin 9.2 g/dL (12.0-16.0); Mean Corpuscular HGB CONC 33.7 g/dL (32.0-36.0); Mean Corpuscular Hemoglobin 31.1 pg (27.0-31.0); Mean Corpuscular Volume 92.3 fL (78.0-98.0); Mean Platelet Volume 8.4 fL (7.4-10.4); Platelet Count 213 thou/uL (130-400); RBC Distribution Width 11.3 % (11.5-14.5); Red Blood Cell (RBC) Count 2.96 mill/uL (4.20-5.40); White Blood Cell (WBC) Count 9.7 thou/uL (4.8-10.8)
[2021-08-28] MEDS: Polyethylene Glycol 3350 17 GM Packet PO SCH (09:10)
[2021-08-28] MEDS: Atorvastatin Calcium 40 MG TAB PO SCH (20:30)
[2021-08-28] MEDS: Enoxaparin Sodium 40 MG/0.4 ML SYRINGE SC SCH (20:32)
[2021-08-29 03:25] LABS: #Eosinphils 0.5 thou/uL (0.0-0.7); #Lymphocytes 1.6 thou/uL (1.20-3.40); #Monocytes 0.7 thou/uL (0.11-0.59); #Neutrophils 5.3 thou/uL (1.40-6.50); %Basophils 0.6 % (0.0-1.0); %Eosinophils 6.4 % (0.0-10.0); %Lymphocytes 19.2 % (21.0-51.0); %Monocytes 8.7 % (0.0-10.0); %Neutrophils 65.1 % (42.0-75.0); Hemoglobin 8.8 g/dL (12.0-16.0); Mean Corpuscular HGB CONC 34.3 g/dL (32.0-36.0); Mean Corpuscular Hemoglobin 31.4 pg (27.0-31.0); Mean Corpuscular Volume 91.7 fL (78.0-98.0); Mean Platelet Volume 8.2 fL (7.4-10.4); Platelet Count 204 thou/uL (130-400); RBC Distribution Width 11.6 % (11.5-14.5); Red Blood Cell (RBC) Count 2.79 mill/uL (4.20-5.40); White Blood Cell (WBC) Count 8.1 thou/uL (4.8-10.8)
[2021-08-29] MEDS: Morphine 4 MG/ML VIAL SLOW IVP PRN (03:27)
[2021-08-29 03:40] LABS: Anion Gap 10 mmol/L (10-20); BUN (Urea Nitrogen) 16 mg/dL (9.8-20.1); Calc. Creatinine Clearance 82 mL/min (70-130); Calcium 8.5 mg/dL (7.8-10.44); Carbon Dioxide 28 mmol/L (23-31); Chloride 105 mmol/L (98-107); Glucose 105 mg/dL (83-110); Magnesium 1.9 mg/dL (1.6-2.6); Phosphorus 2.5 mg/dL (2.3-4.7); Potassium 3.9 mmol/L (3.5-5.1); Sodium 139 mmol/L (136-145)
[2021-08-29 04:02] LABS: CKMB 1.3 ng/mL (0-6.6)
[2021-08-29] MEDS: Acetaminophen 325 MG TAB PO PRN (06:10)
[2021-08-29] MEDS ORDERED: Lorazepam 0.5 MG TAB PO PRN (08:10)
[2021-08-29] MEDS ORDERED: Lansoprazole 3 MG/ML ORAL SUSPENSION PER TUBE SCH (09:00)
[2021-08-29] MEDS: Amiodarone 200 MG TAB PO SCH ×2 (09:29→22:01)
[2021-08-29] MEDS: Polyethylene Glycol 3350 17 GM Packet PO SCH (09:29)
[2021-08-29] MEDS: HYDROcodone/Acetaminophen 5/325 mg Tablet PO PRN ×3 (13:44→22:07)
[2021-08-29] MEDS: Guaifenesin DM 100-10/5 ML UDCUP PO PRN (15:10)
[2021-08-29] MEDS: Atorvastatin Calcium 40 MG TAB PO SCH (22:01)
[2021-08-29] MEDS: guaiFENesin/DM ER PO SCH (22:02)
[2021-08-29] MEDS: Enoxaparin Sodium 40 MG/0.4 ML SYRINGE SC SCH (22:02)
[2021-08-30] MEDS: Mirtazapine 30 MG Soltab PO SCH ×2 (00:37→22:08)
[2021-08-30] MEDS: Ondansetron PF 4 MG/2 ML Vial IVP PRN (02:39)
[2021-08-30] MEDS ORDERED: Milk Of Magnesia 30 ML UDCUP PO PRN (07:01)
[2021-08-30] MEDS ORDERED: Fleet Enema 133 ML BOT PR SCH (08:45)
[2021-08-30] MEDS ORDERED: Lisinopril 2.5 MG TAB PO SCH ×2 (09:00)
[2021-08-30 09:12] LABS: SARS-CoV-2 PCR by NAA Not Detected (NotDetected)
[2021-08-30] MEDS: Furosemide 40 MG TAB PO SCH (10:59)
[2021-08-30] MEDS: Polyethylene Glycol 3350 17 GM Packet PO SCH (10:59)
[2021-08-30] MEDS: Potassium Chloride 10 MEQ TAB PO SCH (10:59)
[2021-08-30] MEDS: Lisinopril 5 MG TAB PO SCH (10:59)
[2021-08-30] MEDS: Amiodarone 200 MG TAB PO SCH ×2 (11:00→22:02)
[2021-08-30] MEDS: HYDROcodone/Acetaminophen 5/325 mg Tablet PO PRN ×2 (11:00→15:33)
[2021-08-30] MEDS: guaiFENesin/DM ER PO SCH ×2 (11:00→22:02)
[2021-08-30] MEDS: Enoxaparin Sodium 40 MG/0.4 ML SYRINGE SC SCH (22:01)
[2021-08-31 04:22] LABS: #Basophils 0.1 thou/uL (0.0-0.2); #Eosinphils 0.5 thou/uL (0.0-0.7); #Monocytes 0.8 thou/uL (0.11-0.59); #Neutrophils 5.6 thou/uL (1.40-6.50); %Basophils 0.6 % (0.0-1.0); %Eosinophils 5.5 % (0.0-10.0); %Lymphocytes 21.9 % (21.0-51.0); %Monocytes 9.2 % (0.0-10.0); %Neutrophils 62.8 % (42.0-75.0); Hemoglobin 8.3 g/dL (12.0-16.0); Mean Corpuscular HGB CONC 32.8 g/dL (32.0-36.0); Mean Corpuscular Hemoglobin 30.5 pg (27.0-31.0); Mean Corpuscular Volume 92.9 fL (78.0-98.0); Mean Platelet Volume 7.7 fL (7.4-10.4); Platelet Count 263 thou/uL (130-400); RBC Distribution Width 11.8 % (11.5-14.5); Red Blood Cell (RBC) Count 2.71 mill/uL (4.20-5.40)
[2021-08-31 04:38] LABS: Anion Gap 9 mmol/L (10-20); BUN (Urea Nitrogen) 11 mg/dL (9.8-20.1); Calc. Creatinine Clearance 0 mL/min (70-130); Calcium 8.6 mg/dL (7.8-10.44); Carbon Dioxide 32 mmol/L (23-31); Chloride 102 mmol/L (98-107); Glucose 100 mg/dL (83-110); Potassium 4.3 mmol/L (3.5-5.1); Sodium 139 mmol/L (136-145)
[2021-08-31] MEDS: Potassium Chloride 10 MEQ TAB PO SCH (08:17)
[2021-08-31] MEDS: Furosemide 40 MG TAB PO SCH (08:17)
[2021-08-31] MEDS: guaiFENesin/DM ER PO SCH ×2 (08:17→20:43)
[2021-08-31] MEDS: Lisinopril 5 MG TAB PO SCH (08:18)
[2021-08-31] MEDS: Polyethylene Glycol 3350 17 GM Packet PO SCH (08:18)
[2021-08-31] MEDS: Amiodarone 200 MG TAB PO SCH ×2 (08:18→20:43)
[2021-08-31] MEDS: HYDROcodone/Acetaminophen 5/325 mg Tablet PO PRN (18:44)
[2021-08-31] MEDS: Enoxaparin Sodium 40 MG/0.4 ML SYRINGE SC SCH (20:43)
[2021-09-01] MEDS: HYDROcodone/Acetaminophen 5/325 mg Tablet PO PRN (01:20)
[2021-09-01] MEDS: Mirtazapine 30 MG Soltab PO SCH (01:21)
[2021-09-01 04:35] LABS: #Eosinphils 0.6 thou/uL (0.0-0.7); #Lymphocytes 2.1 thou/uL (1.20-3.40); #Monocytes 0.9 thou/uL (0.11-0.59); %Basophils 0.4 % (0.0-1.0); %Lymphocytes 22.1 % (21.0-51.0); %Neutrophils 62.5 % (42.0-75.0); Hemoglobin 8.3 g/dL (12.0-16.0); Mean Corpuscular HGB CONC 32.7 g/dL (32.0-36.0); Mean Corpuscular Hemoglobin 30.5 pg (27.0-31.0); Mean Corpuscular Volume 93.3 fL (78.0-98.0); Mean Platelet Volume 7.4 fL (7.4-10.4); Platelet Count 308 thou/uL (130-400); RBC Distribution Width 11.7 % (11.5-14.5); Red Blood Cell (RBC) Count 2.71 mill/uL (4.20-5.40); White Blood Cell (WBC) Count 9.6 thou/uL (4.8-10.8)
[2021-09-01 04:48] LABS: Anion Gap 11 mmol/L (10-20); BUN (Urea Nitrogen) 14 mg/dL (9.8-20.1); Calc. Creatinine Clearance 83 mL/min (70-130); Calcium 8.7 mg/dL (7.8-10.44); Carbon Dioxide 30 mmol/L (23-31); Chloride 100 mmol/L (98-107); Glucose 102 mg/dL (83-110); Sodium 137 mmol/L (136-145)
[2021-09-01] MEDS: guaiFENesin/DM ER PO SCH (08:26)
[2021-09-01] MEDS: Furosemide 40 MG TAB PO SCH (08:26)
[2021-09-01] MEDS: Potassium Chloride 10 MEQ TAB PO SCH (08:26)
[2021-09-01] MEDS: Amiodarone 200 MG TAB PO SCH (08:26)
[2021-09-01] MEDS: Polyethylene Glycol 3350 17 GM Packet PO SCH (09:36)
[2021-09-01] MEDS: Lisinopril 5 MG TAB PO SCH (11:12)
[2021-09-01 16:17] VITALS: BP 101/52
[2021-09-01] MEDS: Acetaminophen 325 MG TAB PO PRN (16:37)
[2021-09-01 17:28] VITALS: TEMP 99.1
[2021-09-07] MEDS ORDERED: Amiodarone 200 MG TAB PO SCH (09:00)
== END 2021-09-01 17:28 | DRG 232 ==
LOC: ERS 22:38 → ERHOLD 08-22 00:03 → CCU 08-22 01:39 → 2NO 08-22 01:48 → CCU 08-23 18:14 → OBSVTOIN 08-23 18:15 → CCU 08-23 19:45 → IMCU/EMU 08-28 18:08
PROVIDERS: ADMIT Specialist; ATTEND Specialist
PROC: 02100Z9 Bypass Coronary Artery, One Artery from Left Internal Mammary, Open Approach (ICD-10-PCS; principal; 2021-08-23)
PROC: 021009W Bypass Coronary Artery, One Artery from Aorta with Autologous Venous Tissue, Open Approach (ICD-10-PCS; 2021-08-23)
PROC: 02703ZZ Dilation of Coronary Artery, One Artery, Percutaneous Approach (ICD-10-PCS; 2021-08-23)
PROC: B2111ZZ Fluoroscopy of Multiple Coronary Arteries using Low Osmolar Contrast (ICD-10-PCS; 2021-08-23)
PROC: 06BP0ZZ Excision of Right Saphenous Vein, Open Approach (ICD-10-PCS; 2021-08-23)
PROC: 5A1221Z Performance of Cardiac Output, Continuous (ICD-10-PCS; 2021-08-23)
PROC: 0SRB019 Replacement of Left Hip Joint with Metal Synthetic Substitute, Cemented, Open Approach (ICD-10-PCS; 2021-08-27)
DX: I21.4 Non-ST elevation (NSTEMI) myocardial infarction (principal); S72.002A Fracture of unspecified part of neck of left femur, initial encounter for closed fracture; I16.1 Hypertensive emergency; I25.110 Atherosclerotic heart disease of native coronary artery with unstable angina pectoris; E78.5 Hyperlipidemia, unspecified; I83.90 Asymptomatic varicose veins of unspecified lower extremity; E03.9 Hypothyroidism, unspecified; K21.9 Gastro-esophageal reflux disease without esophagitis; E78.00 Pure hypercholesterolemia, unspecified; Z20.822 Contact with and (suspected) exposure to COVID-19; E11.9 Type 2 diabetes mellitus without complications; I95.9 Hypotension, unspecified; I48.91 Unspecified atrial fibrillation; R11.0 Nausea; W19.XXXA Unspecified fall, initial encounter; Y92.238 Other place in hospital as the place of occurrence of the external cause; M25.561 Pain in right knee; Z87.891 Personal history of nicotine dependence; Z90.710 Acquired absence of both cervix and uterus; Z90.49 Acquired absence of other specified parts of digestive tract; Z98.890 Other specified postprocedural states; Z88.5 Allergy status to narcotic agent; Z88.1 Allergy status to other antibiotic agents; Z88.8 Allergy status to other drugs, medicaments and biological substances
CPT/HCPCS: 36415; 36416; 36430; 70450; 71045; 72125; 74018; 78452; 80048; 80053; 82553; 83690; 83735; 83880; 84100; 84132; 84484; 85014; 85018; 85025; 85347; 85610; 85730; 86850; 86900; 86901; 92920; 93005; 93010; 93017; 93454; 94640; 96374; A9500; C1769; C1776; C1874; C9113; G0378; J0153; J0171; J0360; J0690; J1100; J1160; J1644; J1650; J1815; J2001; J2250; J2270; J2370; J2405; J2440; J2550; J2704; J2720; J2785; J2795; J3010; J3370; J3475; J3480; J3490; J7030; J7042; J7120; J7620; P9045; Q9967; S0017; S0020; S0028; U0003; U0005

== ENCOUNTER 2021-09-24 10:28 | Inpatient (IN) | payer MEDICARE, BC ==
[2021-09-24 11:18] LABS: #Eosinphils 0.3 thou/uL (0.0-0.7); #Monocytes 0.3 thou/uL (0.11-0.59); #Neutrophils 3.8 thou/uL (1.40-6.50); %Basophils 0.7 % (0.0-1.0); %Eosinophils 5.5 % (0.0-10.0); %Lymphocytes 18.4 % (21.0-51.0); %Monocytes 5.8 % (0.0-10.0); %Neutrophils 69.7 % (42.0-75.0); Hemoglobin 10.9 g/dL (12.0-16.0); Mean Corpuscular Volume 93.9 fL (78.0-98.0); Mean Platelet Volume 7.2 fL (7.4-10.4); Platelet Count 277 thou/uL (130-400); RBC Distribution Width 13.6 % (11.5-14.5); Red Blood Cell (RBC) Count 3.65 mill/uL (4.20-5.40); White Blood Cell (WBC) Count 5.4 thou/uL (4.8-10.8)
[2021-09-24 11:57] LABS: ALT (SGPT) 9 U/L (8-55); AST (SGOT) 23 U/L (5-34); Albumin 3.4 g/dL (3.4-4.8); Alkaline Phosphatase 103 U/L (40-110); Anion Gap 13 mmol/L (10-20); BUN (Urea Nitrogen) 18 mg/dL (9.8-20.1); Bilirubin, Total 0.3 mg/dL (0.2-1.2); Calc. Creatinine Clearance 0 mL/min (70-130); Calcium 9.1 mg/dL (7.8-10.44); Carbon Dioxide 23 mmol/L (23-31); Chloride 107 mmol/L (98-107); Globulin 3.1 g/dL (2.4-3.5); Glucose 168 mg/dL (83-110); Protein, Total 6.5 g/dL (5.8-8.1); Sodium 139 mmol/L (136-145)
[2021-09-24] MEDS ORDERED: Iopamidol 370 76% 100 ML VIAL ONE (12:20)
[2021-09-24] MEDS ORDERED: Nitroglycerin 2% Ointment 1 INCH/1 GM Packet ONE (12:30)
[2021-09-24] MEDS ORDERED: Enoxaparin Sodium 80 MG/0.8 ML SYRINGE ONE (12:30)
[2021-09-24] MEDS ORDERED: Clopidogrel Bisulfate 75 MG TAB ONE (12:30)
[2021-09-24] MEDS ORDERED: Nitroglycerin 50 MG/250 ML BOT 0 ML ONE (12:50)
[2021-09-24] MEDS ORDERED: Nitroglycerin 50 MG/250 ML BOT 250 ML ONE (13:00)
[2021-09-24 14:43] LABS: SARS-CoV-2 NAA Rapid Test Not Detected (NotDetected)
[2021-09-24] MEDS ORDERED: Morphine 4 MG/ML VIAL SLOW IVP PRN (17:09)
[2021-09-24] MEDS ORDERED: Promethazine HCl 12.5 MG in Sodium Chloride 0.9% 50 ML IVPB PRN (17:10)
[2021-09-24] MEDS ORDERED: Sodium Chloride 0.9% 1,000 ML IV SCH (17:15)
[2021-09-24] MEDS ORDERED: Nitroglycerin 50 MG/250 ML BOT 250 ML IVPB PRN (17:16)
[2021-09-24] MEDS ORDERED: Sodium Chloride 0.9% 500 ML IV SCH (17:30)
[2021-09-24] MEDS: Acetaminophen 500 MG TAB PO PRN (19:30)
[2021-09-24] MEDS: Enoxaparin Sodium 80 MG/0.8 ML SYRINGE SC SCH (21:33)
[2021-09-24 21:57] LABS: Troponin I Less than 0.010 ng/mL (< 0.028)
[2021-09-25] MEDS: Acetaminophen 500 MG TAB PO PRN ×2 (01:15→18:30)
[2021-09-25 03:29] LABS: #Eosinphils 0.5 thou/uL (0.0-0.7); #Lymphocytes 1.7 thou/uL (1.20-3.40); #Monocytes 0.5 thou/uL (0.11-0.59); #Neutrophils 2.5 thou/uL (1.40-6.50); %Basophils 0.7 % (0.0-1.0); %Eosinophils 8.8 % (0.0-10.0); %Lymphocytes 32.9 % (21.0-51.0); %Monocytes 9.5 % (0.0-10.0); %Neutrophils 48.2 % (42.0-75.0); Hemoglobin 10.7 g/dL (12.0-16.0); Mean Corpuscular HGB CONC 31.4 g/dL (32.0-36.0); Mean Corpuscular Volume 95.3 fL (78.0-98.0); Mean Platelet Volume 7.5 fL (7.4-10.4); Platelet Count 260 thou/uL (130-400); RBC Distribution Width 13.8 % (11.5-14.5); Red Blood Cell (RBC) Count 3.59 mill/uL (4.20-5.40); White Blood Cell (WBC) Count 5.2 thou/uL (4.8-10.8)
[2021-09-25 03:46] LABS: Hemoglobin A1c 4.8 % (4.0-6.0)
[2021-09-25 03:48] LABS: ALT (SGPT) 7 U/L (8-55); AST (SGOT) 20 U/L (5-34); Albumin 3.1 g/dL (3.4-4.8); Alkaline Phosphatase 99 U/L (40-110); Anion Gap 12 mmol/L (10-20); BUN (Urea Nitrogen) 13 mg/dL (9.8-20.1); Bilirubin, Total 0.4 mg/dL (0.2-1.2); Calc. Creatinine Clearance 79 mL/min (70-130); Calcium 8.4 mg/dL (7.8-10.44); Carbon Dioxide 22 mmol/L (23-31); Cardiac Risk 5.4 (Less than 4.5); Chloride 110 mmol/L (98-107); Cholesterol 284 mg/dl (< 200 Desired); Globulin 2.9 g/dL (2.4-3.5); Glucose 86 mg/dL (83-110); HDL Cholesterol 53 mg/dL (>60 Neg Risk); LDL Cholesterol, Calculated 197 mg/dL; Potassium 3.7 mmol/L (3.5-5.1); Sodium 140 mmol/L (136-145); Triglycerides 171 mg/dL (Less than 150)
[2021-09-25] MEDS ORDERED: Levothyroxine Sodium 88 MCG TAB PO SCH (08:30)
[2021-09-25] MEDS: Aspirin Chewable 81 MG TAB PO SCH (08:50)
[2021-09-25] MEDS: Enoxaparin Sodium 80 MG/0.8 ML SYRINGE SC SCH (08:50)
[2021-09-25] MEDS: Empagliflozin 10 MG TAB PO SCH (08:50)
[2021-09-25] MEDS: Amiodarone 200 MG TAB PO SCH (08:50)
[2021-09-25] MEDS: Pantoprazole 40 MG VIAL IVP SCH (08:50)
[2021-09-25 13:46] VITALS: BMI 25.0
[2021-09-25] MEDS ORDERED: Melatonin 3 MG TAB PO PRN (18:32)
[2021-09-25] MEDS: Apixaban 5 MG TAB PO SCH (19:58)
[2021-09-26 03:35] LABS: #Basophils 0.1 thou/uL (0.0-0.2); #Eosinphils 0.5 thou/uL (0.0-0.7); #Lymphocytes 1.6 thou/uL (1.20-3.40); #Monocytes 0.5 thou/uL (0.11-0.59); #Neutrophils 2.8 thou/uL (1.40-6.50); %Basophils 0.9 % (0.0-1.0); %Lymphocytes 29.6 % (21.0-51.0); %Monocytes 9.3 % (0.0-10.0); %Neutrophils 50.2 % (42.0-75.0); Hemoglobin 10.9 g/dL (12.0-16.0); Mean Corpuscular HGB CONC 33.2 g/dL (32.0-36.0); Mean Corpuscular Volume 93.4 fL (78.0-98.0); Mean Platelet Volume 7.2 fL (7.4-10.4); Platelet Count 279 thou/uL (130-400); RBC Distribution Width 13.5 % (11.5-14.5); Red Blood Cell (RBC) Count 3.51 mill/uL (4.20-5.40); White Blood Cell (WBC) Count 5.5 thou/uL (4.8-10.8)
[2021-09-26 03:53] LABS: ALT (SGPT) 7 U/L (8-55); AST (SGOT) 10 U/L (5-34); Albumin 3.2 g/dL (3.4-4.8); Alkaline Phosphatase 99 U/L (40-110); Anion Gap 8 mmol/L (10-20); BUN (Urea Nitrogen) 14 mg/dL (9.8-20.1); Bilirubin, Total 0.3 mg/dL (0.2-1.2); Calc. Creatinine Clearance 76 mL/min (70-130); Calcium 9.1 mg/dL (7.8-10.44); Carbon Dioxide 26 mmol/L (23-31); Chloride 108 mmol/L (98-107); Globulin 2.7 g/dL (2.4-3.5); Glucose 93 mg/dL (83-110); Potassium 3.8 mmol/L (3.5-5.1); Protein, Total 5.9 g/dL (5.8-8.1); Sodium 138 mmol/L (136-145)
[2021-09-26] MEDS ORDERED: Levothyroxine Sodium 88 MCG TAB PO SCH (06:00)
[2021-09-26 08:38] VITALS: TEMP 98.3
[2021-09-26] MEDS: Aspirin Chewable 81 MG TAB PO SCH (08:49)
[2021-09-26] MEDS: Apixaban 5 MG TAB PO SCH (08:50)
[2021-09-26] MEDS: Empagliflozin 10 MG TAB PO SCH (08:51)
[2021-09-26] MEDS: Amiodarone 200 MG TAB PO SCH (08:51)
[2021-09-26] MEDS: Pantoprazole 40 MG VIAL IVP SCH (08:51)
[2021-09-26 08:56] VITALS: BP 164/84
[2021-09-26] MEDS ORDERED: Lisinopril 2.5 MG TAB PO SCH (09:00)
[2021-10-03] MEDS ORDERED: Apixaban 5 MG TAB PO SCH (09:00)
== END 2021-09-26 13:07 | disposition home or self-care (01) | DRG 303 ==
LOC: ERS 10:28 → CCU 13:13
PROVIDERS: ADMIT Specialist; ATTEND Specialist
DX: I25.110 Atherosclerotic heart disease of native coronary artery with unstable angina pectoris (principal); I82.411 Acute embolism and thrombosis of right femoral vein; Z20.822 Contact with and (suspected) exposure to COVID-19; I10 Essential (primary) hypertension; E03.9 Hypothyroidism, unspecified; I45.4 Nonspecific intraventricular block; E11.9 Type 2 diabetes mellitus without complications; G47.00 Insomnia, unspecified; Z96.642 Presence of left artificial hip joint; Z90.49 Acquired absence of other specified parts of digestive tract; Z90.710 Acquired absence of both cervix and uterus; Z87.891 Personal history of nicotine dependence; Z88.6 Allergy status to analgesic agent; Z88.5 Allergy status to narcotic agent; Z88.0 Allergy status to penicillin; Z88.1 Allergy status to other antibiotic agents; Z79.890 Hormone replacement therapy; Z79.899 Other long term (current) drug therapy; Z95.1 Presence of aortocoronary bypass graft; Z79.82 Long term (current) use of aspirin; I25.2 Old myocardial infarction
CPT/HCPCS: 36415; 71045; 71275; 80053; 80061; 82150; 83036; 83690; 84484; 85025; 85379; 93005; 93306; 96365; 96372; C9113; J1650; Q9967; U0002

== ENCOUNTER 2022-04-03 09:59 | Outpatient (CLI) | payer MEDICARE, BC | END 2022-04-03 10:00 | disposition home or self-care (01) | LOC: BICMAMMO 09:59 | PROVIDERS: ATTEND Specialist | DX: Z12.31 Encounter for screening mammogram for malignant neoplasm of breast (principal); R92.1 Mammographic calcification found on diagnostic imaging of breast; Z80.3 Family history of malignant neoplasm of breast | CPT/HCPCS: 77063; 77067 ==

== ENCOUNTER 2022-04-08 13:48 | Outpatient (CLI) | payer MEDICARE, BC | END 2022-04-08 13:49 | disposition home or self-care (01) | LOC: BICMAMMO 13:48 | PROVIDERS: ATTEND Specialist | DX: R92.1 Mammographic calcification found on diagnostic imaging of breast (principal) | CPT/HCPCS: 77065; G0279 ==

== ENCOUNTER 2022-05-08 08:51 | Outpatient (CLI) | payer MEDICARE, BC | END 2022-05-08 08:52 | disposition home or self-care (01) | LOC: NM 08:51 | PROVIDERS: ATTEND Orthopaedic Surgery | DX: Z47.1 Aftercare following joint replacement surgery (principal); Z96.642 Presence of left artificial hip joint | CPT/HCPCS: 78315; A9503; A9500 ==

== ENCOUNTER 2022-05-13 10:09 | Outpatient (CLI) | payer MEDICARE, BC ==
[2022-05-13 12:43] LABS: #Basophils 0.1 10x3/uL (0.0-0.2); #Eosinphils 0.2 10x3/uL (0.0-0.5); #Monocytes 0.5 10x3/uL (0.0-1.1); #Neutrophils 3.6 10x3/uL (1.5-8.4); %Basophils 1.3 % (0.0-2.0); %Eosinophils 3.4 % (0.0-6.0); %Lymphocytes 27.5 % (18.0-47.0); %Monocytes 8.2 % (0.0-10.0); %Neutrophils 59.4 % (40.0-75.0); Hemoglobin 13.8 g/dL (12.0-15.5); Mean Corpuscular HGB CONC 33.5 g/dL (32.0-36.0); Mean Corpuscular Hemoglobin 30.2 pg (27.0-33.0); Mean Corpuscular Volume 90.2 fl (81.6-98.3); Mean Platelet Volume 11.7 fl (7.4-10.4); Platelet Count 267 10x3/uL (150-450); RBC Distribution Width 12.5 % (11.5-14.5); Red Blood Cell (RBC) Count 4.57 10x6/uL (3.90-5.03); White Blood Cell (WBC) Count 6.1 10x3/uL (3.5-10.5)
[2022-05-13 12:49] LABS: Anion Gap 14 mmol/L (10-20); BUN (Urea Nitrogen) 13 mg/dL (9.8-20.1); Calc. Creatinine Clearance 0 mL/min (70-130); Calcium 9.6 mg/dL (7.8-10.44); Carbon Dioxide 23 mmol/L (23-31); Chloride 106 mmol/L (98-107); Estimated GFR 83; Glucose 100 mg/dL (83-110); Potassium 4.2 mmol/L (3.5-5.1); Sodium 139 mmol/L (136-145)
== END 2022-05-13 10:10 | disposition home or self-care (01) ==
LOC: LABBT 10:09
PROVIDERS: ATTEND Specialist
DX: Z01.818 Encounter for other preprocedural examination (principal); Z20.822 Contact with and (suspected) exposure to COVID-19
CPT/HCPCS: 80048; 85025; 87811; 93005; 93010

== ENCOUNTER 2022-05-16 06:45 | Day surgery (SDC) | payer MEDICARE, BC ==
[2022-05-15 09:06] VITALS: BMI 25.9
[2022-05-16] MEDS ORDERED: Glycopyrrolate 0.2 MG/ML 5 ML SYRINGE ONE (12:57)
[2022-05-16] MEDS ORDERED: Dexamethasone 20 MG/5 ML VIAL ONE (12:57)
[2022-05-16] MEDS ORDERED: Ondansetron ORAL SOLN. 4 MG/5 ML UDCUP ONE (12:57)
[2022-05-16] MEDS ORDERED: Ketorolac Tromethamine 30 MG/ML VIAL ONE (12:57)
[2022-05-16] MEDS ORDERED: Rocuronium Bromide 10 MG/ML (10ML VIAL) ONE (12:57)
[2022-05-16] MEDS ORDERED: PROPOFOL 200 MG/20 ML VIAL ONE (12:57)
[2022-05-16] MEDS ORDERED: PHENYLEPHRINE-NS 100 MCG/ML 10 ML SYRINGE ONE (12:57)
[2022-05-16] MEDS ORDERED: NEOSTIGMINE 3 MG/3 ML SYR 3 MG/3 ML SYRINGE ONE (12:57)
== END 2022-05-16 17:00 | disposition home or self-care (01) ==
LOC: MAMMO 06:45
PROVIDERS: ATTEND Specialist
PROC: 0HBT0ZZ Excision of Right Breast, Open Approach (ICD-10-PCS; principal; 2022-05-16)
PROC: 07B50ZX Excision of Right Axillary Lymphatic, Open Approach, Diagnostic (ICD-10-PCS; 2022-05-16)
DX: C50.811 Malignant neoplasm of overlapping sites of right female breast (principal); E07.9 Disorder of thyroid, unspecified; E78.5 Hyperlipidemia, unspecified; J45.909 Unspecified asthma, uncomplicated; I10 Essential (primary) hypertension; Z17.0 Estrogen receptor positive status [ER+]; Z87.891 Personal history of nicotine dependence; Z79.620 Long term (current) use of immunosuppressive biologic; Z79.899 Other long term (current) drug therapy; Z79.890 Hormone replacement therapy; Z88.1 Allergy status to other antibiotic agents; Z88.5 Allergy status to narcotic agent; Z88.6 Allergy status to analgesic agent; Z88.8 Allergy status to other drugs, medicaments and biological substances
CPT/HCPCS: 19281; 19301; 38525; 38900; 76098; 78195; A9541; C1713; 88307; 88341; 88342; J0171; J0690; J1100; J1885; J2001; J2405; J2704; J3490; Q0162; Q9968; S0020

== ENCOUNTER 2022-05-20 09:24 | Outpatient (CLI) | payer MEDICARE, BC ==
[~2022-05-20 09:24] MED LIST changes: +Acetaminophen 500 MG TAB ONE; +Bupivacaine 0.25% HCL 30 ML VIAL ONE; +CEFAZOLIN 2 GM VIAL ONE; +EPINEPHrine 1 MG/ML AMP ONE; -Iopamidol-370 76% 500 ML 1 ML ONE; +Isosulfan Blue 50 MG/5 ML VIAL ONE; +Ketorolac Tromethamine 30 MG/ML VIAL ONE; +Lidocaine 1% (PF) 30 ML VIAL ONE; +Norepinephrine 4 MG/4 ML VIAL ONE; +Ondansetron PF 4 MG/2 ML Vial ONE; +Sodium Chloride 0.9% 100 ML ONE; +fentaNYL Citrate/PF 100 MCG/2 ML SYRINGE ONE
== END 2022-05-20 09:25 | disposition home or self-care (01) ==
LOC: RAD 09:24
PROVIDERS: ATTEND Internal Medicine Critical Care Medicine
DX: R06.00 Dyspnea, unspecified (principal)
CPT/HCPCS: 71046

== ENCOUNTER 2022-06-03 10:25 | Day surgery (SDC) | payer MEDICARE, BC ==
[2022-06-02 09:56] VITALS: BMI 26.6
[2022-06-03] MEDS ORDERED: Acetaminophen 500 MG TAB ONE (10:43)
[2022-06-03] MEDS ORDERED: Ketorolac Tromethamine 30 MG/ML VIAL ONE (10:43)
[2022-06-03] MEDS ORDERED: Famotidine/PF 20 mg/2ml Vial ONE (13:38)
[2022-06-03] MEDS ORDERED: fentaNYL PF 100 MCG/2 ML SYRINGE ONE (13:38)
[2022-06-03] MEDS ORDERED: Bupivacaine/Epinephrine 0.25% 30 ML VIAL ONE ×2 (13:44→15:08)
[2022-06-03] MEDS ORDERED: Sodium Chloride 0.9% 100 ML ONE (13:50)
[2022-06-03] MEDS ORDERED: CEFAZOLIN 2 GM VIAL ONE (13:50)
[2022-06-03] MEDS ORDERED: PHENYLEPHRINE-NS 100 MCG/ML 10 ML SYRINGE ONE (13:58)
[2022-06-03] MEDS ORDERED: Dexamethasone 20 MG/5 ML VIAL ONE (13:58)
[2022-06-03] MEDS ORDERED: ePHEDrine 50 MG/ML VIAL ONE (13:58)
[2022-06-03] MEDS ORDERED: PROPOFOL 200 MG/20 ML VIAL ONE (13:58)
[2022-06-03] MEDS ORDERED: Metoclopramide HCl 10 MG/2 ML VIAL ONE (13:58)
[2022-06-03] MEDS ORDERED: Albuterol Sulfate HFA (OR ONLY) ONE (13:58)
[2022-06-03] MEDS ORDERED: HYDROcodone/Acetaminophen 5/325 mg Tablet ONE (16:48)
== END 2022-06-03 17:25 | disposition home or self-care (01) ==
LOC: SDC 10:25
PROVIDERS: ATTEND Specialist
PROC: 0HBT0ZZ Excision of Right Breast, Open Approach (ICD-10-PCS; principal; 2022-06-03)
DX: D05.11 Intraductal carcinoma in situ of right breast (principal); N60.21 Fibroadenosis of right breast; N60.91 Unspecified benign mammary dysplasia of right breast; E07.9 Disorder of thyroid, unspecified; E78.5 Hyperlipidemia, unspecified; J45.909 Unspecified asthma, uncomplicated; I10 Essential (primary) hypertension; Z87.891 Personal history of nicotine dependence; Z79.620 Long term (current) use of immunosuppressive biologic; Z79.890 Hormone replacement therapy; Z79.899 Other long term (current) drug therapy; Z88.1 Allergy status to other antibiotic agents; Z88.5 Allergy status to narcotic agent; Z88.6 Allergy status to analgesic agent; Z88.8 Allergy status to other drugs, medicaments and biological substances; Z95.1 Presence of aortocoronary bypass graft
CPT/HCPCS: 19301; C1889; 88307; 88341; 88342; J1100; J1885; J2704; J2765; J3490; S0028

== ENCOUNTER 2022-09-26 10:02 | Outpatient (CLI) | payer MEDICARE, BC | END 2022-09-26 10:03 | disposition home or self-care (01) | LOC: BICMAMMO 10:02 | PROVIDERS: ATTEND Internal Medicine Hematology & Oncology | DX: Z13.820 Encounter for screening for osteoporosis (principal); T38.6X5A Adverse effect of antigonadotrophins, antiestrogens, antiandrogens, not elsewhere classified, initial encounter; M85.89 Other specified disorders of bone density and structure, multiple sites | CPT/HCPCS: 77080 ==

== ENCOUNTER 2023-02-06 13:14 | Emergency (ER) | payer MEDICARE, BC ==
[2023-02-06 14:28] LABS: Bacteria/HPF None Seen HPF (None Seen); Bilirubin Negative (Negative); Blood, Urine Negative (Negative); CAUTI Indications for Culture Alt mental st,lethar; Clarity Clear (Clear); Glucose, Urine (Dipstick) Normal (Negative); Ketone, Urine Negative (Negative); Leukocyte Negative Leu/uL (Negative); Nitrite Negative (Negative); Protein, Urine (Dipstick) Negative (Neg-Trace); RBC/HPF 0-3 HPF (0-3); Specific Gravity, Urine 1.016 (1.002-1.036); Squamous Epithelial 0-3 HPF (0-3); Urobilinogen Normal mg/dL (Less than 2); WBC/HPF 0-3 HPF (0-3)
[2023-02-06 14:32] LABS: Urine Culture Reflex No No
[2023-02-06 14:58] LABS: #Basophils 0.1 thou/uL (0.0-0.2); #Eosinphils 0.1 thou/uL (0.0-0.7); #Monocytes 0.7 thou/uL (0.11-0.59); %Basophils 0.8 % (0.0-1.0); %Eosinophils 1.2 % (0.0-10.0); %Lymphocytes 19.5 % (21.0-51.0); %Monocytes 7.7 % (0.0-10.0); %Neutrophils 70.3 % (42.0-75.0); Hemoglobin 14.2 g/dL (12.0-16.0); Mean Corpuscular HGB CONC 33.2 g/dL (32.0-36.0); Mean Corpuscular Hemoglobin 30.5 pg (27.0-31.0); Platelet Count 246 10x3/uL (130-400); RBC Distribution Width 12.8 % (11.5-14.5); Red Blood Cell (RBC) Count 4.65 mill/uL (4.20-5.40); White Blood Cell (WBC) Count 8.5 10x3/uL (4.8-10.8)
[2023-02-06 15:22] LABS: ALT (SGPT) 15 U/L (8-55); AST (SGOT) 16 U/L (5-34); Albumin 3.8 g/dL (3.4-4.8); Alkaline Phosphatase 75 U/L (40-110); Anion Gap 13 mmol/L (10-20); BUN (Urea Nitrogen) 20 mg/dL (9.8-20.1); Bilirubin, Total 0.4 mg/dL (0.2-1.2); CK (CPK) 110 U/L (29-168); Calc. Creatinine Clearance 0 mL/min (70-130); Calcium 9.4 mg/dL (7.8-10.44); Carbon Dioxide 22 mmol/L (23-31); Chloride 101 mmol/L (98-107); Estimated GFR 73; Globulin 3.4 g/dL (2.4-3.5); Glucose 90 mg/dL (83-110); Lipase 15 U/L (8-78); Potassium 4.4 mmol/L (3.5-5.1); Protein, Total 7.2 g/dL (5.8-8.1); Sodium 132 mmol/L (136-145)
[2023-02-06 16:41] LABS: Magnesium 2.1 mg/dL (1.6-2.6)
[2023-02-06 17:27] LABS: Troponin I Less than 0.010 ng/mL (< 0.028)
== END 2023-02-06 18:02 | disposition home or self-care (01) ==
LOC: ERS 13:14
DX: R07.9 Chest pain, unspecified (principal); I10 Essential (primary) hypertension; E03.9 Hypothyroidism, unspecified; Z87.891 Personal history of nicotine dependence; Z79.899 Other long term (current) drug therapy
CPT/HCPCS: 36415; 71045; 80053; 81001; 82550; 83605; 83690; 83735; 84443; 84484; 85025; 93005; 94760

== ENCOUNTER → 2023-03-19 | Day surgery (SDC) | payer MEDICARE, BC | LOC: ENDO/OP 13:27 | PROVIDERS: ATTEND Internal Medicine Gastroenterology | DX: K21.9 Gastro-esophageal reflux disease without esophagitis (principal); I25.10 Atherosclerotic heart disease of native coronary artery without angina pectoris; J45.909 Unspecified asthma, uncomplicated; K57.30 Diverticulosis of large intestine without perforation or abscess without bleeding; K64.9 Unspecified hemorrhoids; K44.9 Diaphragmatic hernia without obstruction or gangrene; E78.00 Pure hypercholesterolemia, unspecified; E07.9 Disorder of thyroid, unspecified; Z98.49 Cataract extraction status, unspecified eye; Z90.49 Acquired absence of other specified parts of digestive tract; Z90.710 Acquired absence of both cervix and uterus; Z98.890 Other specified postprocedural states; Z88.0 Allergy status to penicillin; Z87.891 Personal history of nicotine dependence; Z85.3 Personal history of malignant neoplasm of breast; Z86.010 Personal history of colon polyps; Z79.899 Other long term (current) drug therapy | CPT/HCPCS: 91010 ==

== ENCOUNTER 2023-04-08 08:48 | Outpatient (CLI) | payer MEDICARE, BC | END 2023-04-08 08:49 | disposition home or self-care (01) | LOC: BICMAMMO 08:48 | PROVIDERS: ATTEND Specialist | DX: Z08 Encounter for follow-up examination after completed treatment for malignant neoplasm (principal); Z85.3 Personal history of malignant neoplasm of breast | CPT/HCPCS: 77066; G0279 ==

== ENCOUNTER 2023-06-08 09:05 | Outpatient (CLI) | payer MEDICARE, BC ==
[2023-06-08] MEDS ORDERED: Iopamidol 370 76% 100 ML VIAL ONE (14:43)
== END 2023-06-08 09:06 | disposition home or self-care (01) ==
LOC: CT 09:05
PROVIDERS: ATTEND Specialist
DX: R91.1 Solitary pulmonary nodule (principal)
CPT/HCPCS: 71260; 82565

== ENCOUNTER 2023-09-25 11:36 | Outpatient (CLI) | payer MEDICARE, BC | END 2023-09-25 11:37 | disposition home or self-care (01) | LOC: BICRAD 11:36 | PROVIDERS: ATTEND Family Medicine | DX: R05.1 Acute cough (principal) | CPT/HCPCS: 71046 ==

== ENCOUNTER 2024-06-15 08:54 | Outpatient (CLI) | payer MEDICARE, BC | END 2024-06-15 08:55 | disposition home or self-care (01) | LOC: BICMAMMO 08:54 | PROVIDERS: ATTEND Specialist | DX: Z08 Encounter for follow-up examination after completed treatment for malignant neoplasm (principal); Z85.3 Personal history of malignant neoplasm of breast; Z98.890 Other specified postprocedural states; Z91.89 Other specified personal risk factors, not elsewhere classified | CPT/HCPCS: 77066; G0279 ==

== ENCOUNTER 2024-08-05 08:30 | Outpatient (CLI) | payer MEDICARE, BC | END 2024-08-05 08:31 | disposition home or self-care (01) | LOC: BICRAD 08:30 | PROVIDERS: ATTEND Family Medicine | DX: M70.61 Trochanteric bursitis, right hip (principal) ==

== ENCOUNTER 2024-09-23 10:10 | Outpatient (CLI) | payer MEDICARE, BC | END 2024-09-23 10:11 | disposition home or self-care (01) | LOC: BICMAMMO 10:10 | PROVIDERS: ATTEND Family Medicine | DX: Z78.0 Asymptomatic menopausal state (principal); M85.851 Other specified disorders of bone density and structure, right thigh | CPT/HCPCS: 77080 ==